=== PATIENT | male | born 1995 | race Two or more races ===

== ENCOUNTER → 2016-04-04 | Outpatient (CLI) | payer SELFPAY ==
[2016-01-11 10:51] VITALS: BP 137/76
[~2016-04-04] MED LIST: DOCU-27 PO; DOXY100T PO; HYDR-2666 PO; Hydrocodone/Acetaminophen PO; NO REPORTED MEDS; ONDA4TAB7 PO; Oxycodone Hcl/Acetaminophen PO; PRED20TA PO
[2016-04-04 14:12] LABS: ALBUMIN 3.8 g/dL (3.4-5.0); ALBUMIN/GLOBULIN RATIO 1.1 (1.0-1.7); CALCIUM 9.2 mg/dL (8.5-10.1); CREATININE 0.8 mg/dL (0.7-1.3); GFR 119.8; TOTAL BILIRUBIN 0.5 mg/dL (0.2-1.0); TOTAL PROTEIN 7.4 g/dL (6.4-8.2)
[2016-04-04 14:13] LABS: BASO % 1 % (0-3); EOS % 1 % (0-3); LYMPH # 2.5 x10^3/uL (1.0-4.8); LYMPH % 38 % (24-48); MEAN CORPUSCULAR HEMOGLOBIN 29 pg (25-35); MEAN CORPUSCULAR HGB CONC 33 g/dL (31-37); MEAN CORPUSCULAR VOLUME 88 fL (79-100); MONO % 6 % (0-9); NEUT % 55 % (31-73); PLATELET COUNT 256 x10^3/uL (140-400); RED BLOOD COUNT 5.13 x10^6/uL (4.30-5.70); RED CELL DISTRIBUTION WIDTH 13.3 % (11.5-14.5); WHITE BLOOD COUNT 6.6 x10^3/uL (4.0-11.0)
[2016-04-04 14:20] LABS: INR 1.1 (0.8-1.1); PROTHROMBIN TIME PATIENT 13.5 SEC (11.7-14.0)
== END | disposition home or self-care (01) ==
LOC: SURGPAT 13:19
PROVIDERS: ATTEND Neurological Surgery
DX: Z01.812 Encounter for preprocedural laboratory examination (principal)
CPT/HCPCS: 36415; 80053; 85027; 85610; 85730; 87641

== ENCOUNTER 2016-04-08 08:30 | Inpatient (IN) | payer SELFPAY ==
[~2016-04-08] VITALS: Ht 180.3 cm; Wt 133.8 kg
--- NOTE | 2016-04-15 01:58 | HP ---
ADMIT DATE: 04/22/2016 DICTATED BY: Pelon Benitez RN Date of surgery will be 04/22/2016. HISTORY OF PRESENT ILLNESS: This is a pleasant 21-year-old with an enlarging cystic fluid collection in his posterior fossa in the region where the previous extensive surgery has been done to remove his cerebellar tumor. He feels he has worsening in his condition. He is having more headaches. He notes some pain and blurred vision associated with his left eye. He says that he is noticing increased fullness in the back of his head on the left side. The cyst that I have been following is slowly enlarging over the last 8 months. There was compression of the fourth ventricle, currently located with it. To deal with the problem, would require surgery. I explained that I reviewed the films with another neurosurgeon and the most prudent and safe course would be to shunt the cyst. I outlined that the surgery with him in detail. 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 FAMILY HISTORY: Cancer and hypertension. SOCIAL HISTORY: Single. Nonsmoker. Does not drink alcohol. ALLERGIES: No known drug allergies. CURRENT MEDICATIONS: Ibuprofen and hydrocodone 7.5 one to two tablets as needed every 6 hours. REVIEW OF SYSTEMS: A 12-point review of systems was obtained and is noncontributory except for that mentioned above. PHYSICAL EXAMINATION: NEUROSURGERY EXAMINATION: GENERAL APPEARANCE: Alert, pleasant, in no acute distress. HEENT: Normocephalic, atraumatic. Eyes: Extraocular movement intact in his left eye, the left pupil is round, reactive to light and accommodation. He has no light perception on the right side. Ears: Hearing intact to finger rub. Oral cavity, tongue in midline. NECK AND THYROID: Full range of motion. SKIN: Warm and dry. EXTREMITIES: No clubbing, cyanosis, or edema. NEUROLOGIC: Alert and oriented x3, normal recent and remote memory, cranial nerves 2-12 intact. Strength 5/5 in bilateral upper and lower extremities, reflexes were present and symmetric in bilateral upper and lower extremities, sensory was intact to pin and light touch in the upper and lower extremities, normal gait. ASSESSMENT/PLAN: After the discussion with him and his mother, he would like to go ahead with surgery. We discussed the expected postoperative course and technique. He understands very well. He understands risks associated with the surgery, and its nature. He would like to proceed. We will make the arrangements. STORM HUSSEIN MD DR: ELVER/kaleb JOB#: [id number] / [id number] LARS
[2016-04-22] VITALS (8 sets, daily range): BP systolic 115–155; BP diastolic 64–88
[2016-04-22] MEDS ORDERED: BACITRACIN 50,000 UNIT in IV NORMAL SALINE 1000ML BAG 1,000 ML IRR ONE (06:00)
[2016-04-22] MEDS ORDERED: CEFAZOLIN 2GM PREMIX 50 ML IV PRN (06:00)
[2016-04-22] MEDS ORDERED: HYDROMORPHONE 2 MG/ML VIAL. IV PRN ×2 (07:00→14:00)
[2016-04-22] MEDS ORDERED: LIDOCAINE 1% 1 ML SYRINGE. ID PRN (07:00)
[2016-04-22] MEDS ORDERED: IV RINGERS,LACTATED 1000ML 1,000 ML IV SCH ×2 (07:00→10:00)
[2016-04-22] MEDS ORDERED: MORPHINE SULFATE 2 MG/ML DISP.SYRIN. IV PRN (07:00)
[2016-04-22] MEDS ORDERED: FENTANYL PF 100 MCG/2 ML VIAL. IV PRN ×3 (07:00→18:45)
[2016-04-22] MEDS ORDERED: ONDANSETRON PF 4 MG/2 ML VIAL. IV PRN ×2 (07:00→18:45)
[2016-04-22] MEDS ORDERED: PROCHLORPERAZINE 10 MG/2 ML VIAL. IV PRN ×2 (07:00→14:00)
[2016-04-22] MEDS ORDERED: ROCURONIUM 50 MG/5 ML VIAL. ONE ×2 (11:39→13:55)
[2016-04-22] MEDS ORDERED: REMIFENTANIL 2 MG VIAL. IV ONE (11:41)
[2016-04-22] MEDS ORDERED: PROPOFOL 50 ML IV ONE ×2 (11:43→15:10)
--- NOTE | 2016-04-22 12:09 | RAD ---
CT of the head without contrast, 04/22/2016: History: Shunt malfunction, brain lab study Noncontrast scans were obtained with the data sent to the operating room to aid in the patient's stereotactically guided surgery. The following findings are delineated on this limited exam: 1. A shunt tube remains in place entering the skull in the left frontoparietal region extending just to the right of midline in the region of the interventricular septum between the frontal horns of the lateral ventricles. The left lateral ventricle is enlarged compared to the collapsed right lateral ventricle, unchanged since 01/09/2016. 2. There is a persistent moderate sized cystic lesion in the left cerebellar hemisphere with mild effacement and displacement of the fourth ventricle to the right of midline. Again noted is an overlying craniotomy defect with a surgical plate and screws in place.
[2016-04-22] MEDS ORDERED: FENTANYL PF 250 MCG/5 ML VIAL. ONE (12:54)
[2016-04-22] MEDS ORDERED: DEXAMETHASONE SOD PHOS 20 MG/5 ML VIAL. ONE (13:07)
[2016-04-22] MEDS ORDERED: FAMOTIDINE 20 MG/2 ML VIAL ONE (13:07)
[2016-04-22] MEDS ORDERED: DESFLURANE > 120 MINUTES IH ONE (13:07)
[2016-04-22] MEDS ORDERED: LIDOCAINE 2% 100 MG/5 ML DISP.SYRIN. ONE (13:07)
[2016-04-22] MEDS ORDERED: MINERAL OIL/PETROLATUM,WHITE OPHTH OINT 3.5GM TUBE. ONE (13:07)
[2016-04-22] MEDS ORDERED: ONDANSETRON PF 4 MG/2 ML VIAL. ONE (13:07)
[2016-04-22] MEDS ORDERED: 0.9 % SODIUM CHLORIDE 50 ML VIAL. IJ ONE (13:52)
[2016-04-22] MEDS ORDERED: EPHEDRINE PF IN SALINE 50 MG/5 ML DISP.SYRIN. IV ONE (13:55)
[2016-04-22] MEDS ORDERED: PHENYLEPHRINE in 0.9% NACL PF 1 MG/10 ML DISP.SYRIN. IV ONE (13:55)
[2016-04-22] MEDS ORDERED: MEPERIDINE PF 25 MG/ML VIAL. IV PRN (14:00)
[2016-04-22] MEDS ORDERED: DIPHENHYDRAMINE 50 MG/ML VIAL IV PRN (14:00)
[2016-04-22] MEDS ORDERED: MORPHINE SULFATE 4 MG/ML DISP.SYRIN. IV PRN (14:00)
[2016-04-22] MEDS ORDERED: SURGICEL HEMOSTAT 4X8 EACH. ONE (14:21)
[2016-04-22] MEDS ORDERED: BUPIVAC MPF-EPI 0.5%-1:200000 30 ML VIAL. ONE (14:21)
[2016-04-22] MEDS ORDERED: THROMBIN 20,000 UNIT SPRAY.SYRN KIT TP ONE (14:21)
[2016-04-22] MEDS ORDERED: GELATIN SPONGE SIZE 100. ONE (14:21)
[2016-04-22] MEDS ORDERED: GLYCOPYRROLATE 1 MG/5 ML VIAL. ONE (15:35)
[2016-04-22] MEDS ORDERED: NEOSTIGMINE METHYLSULFATE 5 MG/5 ML SYRINGE. ONE (15:36)
[2016-04-22] MEDS: FENTANYL PF 100 MCG/2 ML VIAL. IV PRN ×5 (16:13→22:56)
[2016-04-22] MEDS: POTASSIUM CL 20MEQ D5-0.45NACL 1,000 ML IV SCH (19:55)
[2016-04-22] MEDS: CEFAZOLIN SODIUM 1 GM in IV NORMAL SALINE 50ML 50 ML IV SCH (22:57)
[2016-04-23] VITALS (14 sets, daily range): BP systolic 96–127; BP diastolic 54–82
[2016-04-23] MEDS: FENTANYL PF 100 MCG/2 ML VIAL. IV PRN ×2 (01:22→04:15)
[2016-04-23] MEDS: CEFAZOLIN SODIUM 1 GM in IV NORMAL SALINE 50ML 50 ML IV SCH ×2 (06:03→12:38)
[2016-04-23] MEDS: OXYCODONE/APAP 5/325 TABLET. PO PRN ×5 (08:59→21:31)
[2016-04-23] MEDS: POTASSIUM CL 20MEQ D5-0.45NACL 1,000 ML IV SCH (09:20)
--- NOTE | 2016-04-23 09:54 | PDOC ---
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 awake, alert, up in chair c/o incisional pain and headache c/o mild nausea Objective Objective Vital Signs Date Time Temp Pulse Resp B/P Pulse Ox O2 Delivery O2 Flow Rate FiO2 04/23/16 09:00 98 20 116/77 95 Room Air 04/23/16 08:00 97.7 97.7 04/22/16 20:24 5.0 Intake and Output 04/23/16 07:00 Intake Total 2784 ml Output Total 1545 ml Balance 1239 ml Intake Oral 0 ml IV Total 2784 ml Output Urine Total 1530 ml Estimated Blood Loss 15 ml Physical Exam General: Alert, Oriented X3, Cooperative, No acute distress Neuro: Normal speech, Other (MARES) Psych/Mental Status: Mental status NL Skin: Other (Dressing dry and intact) Assessment Assessment Problems Surgical Problems: (1) S/P ventricular shunt placement Status: Acute Plan Plan of Care transfer to floor encouraged PO as tolerated likely dc tomorrow Comment Review of Relevant I have reviewed the following items tracey (where applicable) has been applied. Labs Laboratory Tests Test 04/22/16 16:00 Nasal Screen MRSA (PCR) Negative (Negative) Laboratory Tests Test 04/22/16 16:00 Nasal Screen MRSA (PCR) Negative (Negative) Medications Current Medications Ondansetron HCl (Zofran) 4 mg PRN Q6HRS PRN IV Nausea; Start 04/22/16 at 07:00 ; Stop 04/22/16 at 18:54; Status DC Fentanyl Citrate (Fentanyl 2ml Vial) 25 mcg PRN Q5MIN PRN IV MILD PAIN; Start 04/22/16 at 07:00; Stop 04/22/16 at 18:38; Status DC Fentanyl Citrate (Fentanyl 2ml Vial) 50 mcg PRN Q5MIN PRN IV MODERATE PAIN Last administered on 04/22/16t 18:05; Start 04/22/16 at 07:00; Stop 04/22/16 at 18:38; Status DC Morphine Sulfate 1 mg 1 mg PRN Q10MIN PRN IV SEVERE PAIN; Start 04/22/16 at 07: 00; Stop 04/22/16 at 18:38; Status DC Lactated Ringer's (Iv Lactated Ringers) 1,000 ml @ 0 mls/hr Q0M IV ; Start at 07:00; Stop 04/22/16 at 18:38; Status DC Lidocaine HCl 2 ml 1X PRN PRN ID IV START; Start 04/22/16 at 07:00; Stop at 18:38; Status DC Hydromorphone HCl (Dilaudid) 0.5 mg PRN Q10MIN PRN IV SEVERE PAIN, Second choice; Start 04/22/16 at 07:00; Stop 04/22/16 at 18:38; Status DC Prochlorperazine Edisylate 5 mg 5 mg PACU PRN PRN IV NAUSEA; Start 04/22/16 at 07:00; Stop 04/22/16 at 18:38; Status DC Bacitracin 47129 unit/Sodium Chloride 1,000 ml @ 1,000 mls/hr 1X PERIOP ONCE IRR Last administered on 04/22/16 14:15; Start 04/22/16 at 06:00; Stop at 06:59; Status DC Cefazolin Sodium/ Dextrose 50 ml @ 100 mls/hr 1X PREOP PRN IV PRIOR TO PROCEDURE Last administered on 04/22/16 13:17; Start 04/22/16 at 06:00; Stop at 18:00; Status DC Lactated Ringer's (Iv Lactated Ringers) 1,000 ml @ 75 mls/hr [id number] IV Last administered on 04/22/16 17:19; Start 04/22/16 at 10:00; Stop 04/22/16 at 19:25 ; Status DC Rocuronium [place] (Zemuron) 50 mg STK-MED ONCE .ROUTE ; Start 04/22/16 at 11:39 ; Stop 04/22/16 at 11:40; Status DC Remifentanil HCl 2 mg 2 mg STK-MED ONCE IV ; Start 04/22/16 at 11:41; Stop 04/22 at 11:42; Status DC Propofol (Diprivan) 50 ml @ As Directed STK-MED ONCE IV ; Start 04/22/16 at 11: 43; Stop 04/22/16 at 11:44; Status DC Fentanyl Citrate (Fentanyl 5ml Vial) 250 mcg STK-MED ONCE .ROUTE ; Start at 12:54; Stop 04/22/16 at 12:55; Status DC Lidocaine HCl 100 mg STK-MED ONCE .ROUTE ; Start 04/22/16 at 13:07; Stop at 13:08; Status DC Dexamethasone Sodium Phosphate (Decadron) 20 mg STK-MED ONCE .ROUTE ; Start at 13:07; Stop 04/22/16 at 13:08; Status DC Ondansetron HCl (Zofran) 4 mg STK-MED ONCE .ROUTE ; Start 04/22/16 at 13:07; Stop 04/22/16 at 13:08; Status DC Famotidine (Pepcid) 20 mg STK-MED ONCE .ROUTE ; Start 04/22/16 at 13:07; Stop at 13:08; Status DC Multi-Ingred Cream/Lotion/Oil/ Oint (Artificial Tears Eye Oint) 7 sudhir STK-MED ONCE .ROUTE ; Start 04/22/16 at 13:07; Stop 04/22/16 at 13:08; Status DC Desflurane (Suprane) 90 ml STK-MED ONCE IH ; Start 04/22/16 at 13:07; Stop 04/22 at 13:08; Status DC Sodium Chloride (Sodium Chloride) 50 ml STK-MED ONCE IJ ; Start 04/22/16 at 13: 52; Stop 04/22/16 at 13:53; Status DC Ephedrine Sulfate 50 mg STK-MED ONCE IV ; Start 04/22/16 at 13:55; Stop at 13:56; Status DC Phenylephrine HCl 1 mg STK-MED ONCE IV ; Start 04/22/16 at 13:55; Stop 04/22/16 at 13:56; Status DC Rocuronium [place] (Zemuron) 50 mg STK-MED ONCE .ROUTE ; Start 04/22/16 at 13:55 ; Stop 04/22/16 at 13:56; Status DC Fentanyl Citrate (Fentanyl 2ml Vial) 50 mcg PRN Q5MIN PRN IV Acute Pain; Start 04/22/16 at 14:00; Stop 04/22/16 at 20:00; Status DC Morphine Sulfate 4 mg PRN Q10MIN PRN IV Moderate Pain; Start 04/22/16 at 14:00 ; Stop 04/22/16 at 20:00; Status DC Hydromorphone HCl (Dilaudid) 0.4 mg PRN Q10MIN PRN IV Moderate to severe pain; Start 04/22/16 at 14:00; Stop 04/22/16 at 20:00; Status DC Meperidine HCl (Demerol) 12.5 mg PRN Q5MIN PRN IV SHIVERING; Start 04/22/16 at 14:00; Stop 04/22/16 at 18:00; Status DC Prochlorperazine Edisylate (Compazine) 5 mg PRN Q6HRS PRN IV Nausea/Vomiting, 1st Choice; Start 04/22/16 at 14:00; Stop 04/22/16 at 20:00; Status DC Diphenhydramine HCl (Benadryl) 12.5 mg PRN Q2HR PRN IV ITCHING; Start 04/22/16 at 14:00; Stop 04/22/16 at 20:00; Status DC Thrombin 20,000 unit STK-MED ONCE TP Last administered on 04/22/16 14:15; Start 04/22/16 at 14:21; Stop 04/22/16 at 14:22; Status DC Gelatin (Gelfoam Size 100) 1 each STK-MED ONCE .ROUTE Last administered on 14:15; Start 04/22/16 at 14:21; Stop 04/22/16 at 14:22; Status DC Bupivacaine HCl/ Epinephrine Bitart (Sensorcain-Mpf Epi 0.5%-1:397061) 30 ml STK -MED ONCE .ROUTE Last administered on 04/22/16 14:15; Start 04/22/16 at 14:21 ; Stop 04/22/16 at 14:22; Status DC Cellulose 1 each 1 each STK-MED ONCE .ROUTE ; Start 04/22/16 at 14:21; Stop at 14:22; Status DC Propofol (Diprivan) 50 ml @ As Directed STK-MED ONCE IV ; Start 04/22/16 at 15: 10; Stop 04/22/16 at 15:11; Status DC Glycopyrrolate (Robinul) 1 mg STK-MED ONCE .ROUTE ; Start 04/22/16 at 15:35; Stop 04/22/16 at 15:36; Status DC Neostigmine Methylsulfate 5 mg STK-MED ONCE .ROUTE ; Start 04/22/16 at 15:36; Stop 04/22/16 at 15:37; Status DC Fentanyl Citrate (Fentanyl 2ml Vial) 50 mcg PRN Q1HR PRN IV PAIN Last administered on 04/23/16 04:15; Start 04/22/16 at 18:45 Fentanyl Citrate (Fentanyl 2ml Vial) 25 mcg PRN Q1HR PRN IV PAIN; Start at 18:45 Oxycodone/ Acetaminophen (Percocet 5/325) 1 tab PRN Q4HRS PRN PO PAIN Last administered on 04/23/16 08:59; Start 04/22/16 at 18:45 Oxycodone/ Acetaminophen 2 tab 2 tab PRN Q4HRS PRN PO PAIN; Start 04/22/16 at 18:45 Cefazolin Sodium/ Sodium Chloride (Ancef/Iv Sodium Chloride 0.9% 50ml) 50 ml @ 100 mls/hr Q8H IV Last administered on 04/23/16 06:03; Start 04/22/16 at 22:00 ; Stop 04/23/16 at 14:29 Ondansetron HCl 4 mg 4 mg PRN Q8HRS PRN IV NAUSEA/VOMITING; Start 04/22/16 at 18:45 Potassium Chloride/Dextrose/ Sod Cl (KCl 20 Meq In D5W-1/2 NS) 1,000 ml @ 75 mls/hr [id number] IV Last administered on 04/22/16 19:55; Start 04/22/16 at 20:00 Active Scripts Active Reported Hydrocodone-Apap 5-325 (Hydrocodone Bit/Acetaminophen) 1 Each Tablet 1 Tab PO PRN Q6HRS PRN Vitals/I & O Vital Sign - Last 24 Hours 04/22/16 04/22/16 04/22/16 04/22/16 15:46 16:00 16:00 16:13 Temp 96.5 96.5 Pulse 90 96 Resp 20 20 20 B/P 144/86 156/88 Pulse Ox 100 100 99 O2 Delivery Simple Mask Mask Simple Mask Simple Mask O2 Flow Rate 10 4.0 10 10.0 04/22/16 04/22/16 04/22/16 04/22/16 16:15 16:22 16:25 16:30 Temp 96.5 98.1 96.5 98.1 Pulse 96 95 69 Resp 20 20 20 20 B/P 143/80 155/88 143/79 Pulse Ox 100 100 99 100 O2 Delivery Simple Mask Simple Mask Simple Mask Simple Mask O2 Flow Rate 10 10.0 10.0 10 04/22/16 04/22/16 04/22/16 04/22/16 16:40 16:45 17:00 17:04 Temp 98.1 98.1 Pulse 72 62 Resp 20 14 B/P 136/77 116/72 Pulse Ox 100 100 O2 Delivery Simple Mask Mask Simple Mask O2 Flow Rate 5.0 5.0 5.0 5.0 04/22/16 04/22/16 04/22/16 04/22/16 18:00 18:05 18:06 18:31 Pulse 100 Resp 16 16 16 B/P 133/69 Pulse Ox 94 94 94 O2 Delivery Room Air Room Air Room Air Room Air 04/22/16 04/22/16 04/22/16 04/22/16 19:54 20:00 20:00 20:24 Temp 97.6 97.6 Pulse 110 Resp 12 18 B/P 131/74 Pulse Ox 97 97 O2 Delivery Room Air Room Air Room Air O2 Flow Rate 5.0 04/22/16 04/22/16 04/22/16 04/22/16 21:15 22:00 23:00 23:26 Pulse 93 109 104 Resp 16 20 18 B/P 115/67 121/67 115/64 Pulse Ox 94 92 95 98 O2 Delivery Room Air Room Air Room Air Room Air 04/23/16 04/23/16 04/23/16 04/23/16 00:00 00:00 01:00 02:00 Temp 97.3 97.3 Pulse 98 100 96 Resp 16 18 16 B/P 118/61 108/64 101/56 Pulse Ox 94 88 94 O2 Delivery Room Air Room Air Room Air Room Air 04/23/16 04/23/16 04/23/16 04/23/16 03:00 04:00 04:00 05:00 Temp 97.7 97.7 Pulse 80 87 113 Resp 14 16 14 B/P 96/54 127/67 100/63 Pulse Ox 96 89 97 O2 Delivery Room Air Room Air Room Air Room Air 04/23/16 04/23/16 04/23/16 04/23/16 06:00 07:00 08:00 08:00 Temp 97.7 97.7 Pulse 75 65 67 Resp 12 20 20 B/P 108/61 108/64 110/57 Pulse Ox 94 96 92 O2 Delivery Room Air Room Air Room Air Room Air 04/23/16 04/23/16 08:59 09:00 Pulse 98 Resp 16 20 B/P 116/77 Pulse Ox 94 95 O2 Delivery Room Air Room Air Intake and Output 04/22/16 04/22/16 04/23/16 15:00 23:00 07:00 Intake Total 50 ml 1878 ml 856 ml Output Total 915 ml 630 ml Balance 50 ml 963 ml 226 ml STORM HUSSEIN MD Apr 23, 2016 09:54
[2016-04-24] MEDS: OXYCODONE/APAP 5/325 TABLET. PO PRN ×3 (01:45→12:43)
[2016-04-24 03:07] VITALS: BP 113/62
[2016-04-24 07:00] VITALS: BP 106/48
--- NOTE | 2016-04-24 09:34 | DISCH ---
DISCHARGE INSTRUCTIONS Condition on Discharge Condition on Discharge: Stable Activity After Discharge Activity Instructions for Disc: Activity as tolerated, Avoid exertion Bathing Instructions: Shower-keep dressing dry Lifting Instructions after Dis: No heavy lifting, No pulling or pushing, Do not lift >10 pounds Driving Instructions after Dis: No driving for 2 weeks Diet after Discharge Additional Diet Restrictions: resume home diet Wound Incision Care Wound/Incision Care: Ice to area for comfort Other wound/incision instructi: may shower- no soaking Contacting the after DC Call your doctor for: Concerns you may have Follow-Up Follow up with: Dr. Mckoy in 2 weeks [phone] KAEL PRIEST APRN Apr 24, 2016 09:34
[2016-04-24] MEDS ORDERED: OXYC1TAB7 PO (09:41)
[2016-04-24] MEDS ORDERED: ONDA4TAB7 PO (09:41)
--- NOTE | 2016-04-24 09:44 | PDOC ---
PROGRESS NOTES Subjective Subjective awake, resting in bed pain improved incisions sore Objective Objective Vital Signs Date Time Temp Pulse Resp B/P Pulse Ox O2 Delivery O2 Flow Rate FiO2 04/24/16 08:24 Room Air 04/24/16 07:00 97.5 16 16 106/48 96 97.5 04/22/16 20:24 5.0 Intake and Output 04/24/16 06:59 Intake Total 770 ml Output Total 250 ml Balance 520 ml Intake Oral 420 ml IV Total 350 ml Output Urine Total 250 ml # Voids 1 Physical Exam General: Alert, Oriented X3, Cooperative, No acute distress Neuro: Normal speech Skin: Other (dressings removed, mari intact, dry) Assessment Assessment Problems Medical Problems: (1) Hydrocephalus Status: Acute Surgical Problems: (1) S/P ventricular shunt placement Status: Acute Plan Plan of Care may dc home f/u 2 weeks Comment Review of Relevant I have reviewed the following items tracey (where applicable) has been applied. Labs Laboratory Tests Test 04/22/16 16:00 Nasal Screen MRSA (PCR) Negative (Negative) Medications Current Medications Ondansetron HCl (Zofran) 4 mg PRN Q6HRS PRN IV Nausea; Start 04/22/16 at 07:00 ; Stop 04/22/16 at 18:54; Status DC Fentanyl Citrate (Fentanyl 2ml Vial) 25 mcg PRN Q5MIN PRN IV MILD PAIN; Start 04/22/16 at 07:00; Stop 04/22/16 at 18:38; Status DC Fentanyl Citrate (Fentanyl 2ml Vial) 50 mcg PRN Q5MIN PRN IV MODERATE PAIN Last administered on 04/22/16t 18:05; Start 04/22/16 at 07:00; Stop 04/22/16 at 18:38; Status DC Morphine Sulfate 1 mg 1 mg PRN Q10MIN PRN IV SEVERE PAIN; Start 04/22/16 at 07: 00; Stop 04/22/16 at 18:38; Status DC Lactated Ringer's (Iv Lactated Ringers) 1,000 ml @ 0 mls/hr Q0M IV ; Start at 07:00; Stop 04/22/16 at 18:38; Status DC Lidocaine HCl 2 ml 1X PRN PRN ID IV START; Start 04/22/16 at 07:00; Stop at 18:38; Status DC Hydromorphone HCl (Dilaudid) 0.5 mg PRN Q10MIN PRN IV SEVERE PAIN, Second choice; Start 04/22/16 at 07:00; Stop 04/22/16 at 18:38; Status DC Prochlorperazine Edisylate 5 mg 5 mg PACU PRN PRN IV NAUSEA; Start 04/22/16 at 07:00; Stop 04/22/16 at 18:38; Status DC Bacitracin 10520 unit/Sodium Chloride 1,000 ml @ 1,000 mls/hr 1X PERIOP ONCE IRR Last administered on 04/22/16 14:15; Start 04/22/16 at 06:00; Stop at 06:59; Status DC Cefazolin Sodium/ Dextrose 50 ml @ 100 mls/hr 1X PREOP PRN IV PRIOR TO PROCEDURE Last administered on 04/22/16 13:17; Start 04/22/16 at 06:00; Stop at 18:00; Status DC Lactated Ringer's (Iv Lactated Ringers) 1,000 ml @ 75 mls/hr [id number] IV Last administered on 04/22/16 17:19; Start 04/22/16 at 10:00; Stop 04/22/16 at 19:25 ; Status DC Rocuronium [place] (Zemuron) 50 mg STK-MED ONCE .ROUTE ; Start 04/22/16 at 11:39 ; Stop 04/22/16 at 11:40; Status DC Remifentanil HCl 2 mg 2 mg STK-MED ONCE IV ; Start 04/22/16 at 11:41; Stop 04/22 at 11:42; Status DC Propofol (Diprivan) 50 ml @ As Directed STK-MED ONCE IV ; Start 04/22/16 at 11: 43; Stop 04/22/16 at 11:44; Status DC Fentanyl Citrate (Fentanyl 5ml Vial) 250 mcg STK-MED ONCE .ROUTE ; Start at 12:54; Stop 04/22/16 at 12:55; Status DC Lidocaine HCl 100 mg STK-MED ONCE .ROUTE ; Start 04/22/16 at 13:07; Stop at 13:08; Status DC Dexamethasone Sodium Phosphate (Decadron) 20 mg STK-MED ONCE .ROUTE ; Start at 13:07; Stop 04/22/16 at 13:08; Status DC Ondansetron HCl (Zofran) 4 mg STK-MED ONCE .ROUTE ; Start 04/22/16 at 13:07; Stop 04/22/16 at 13:08; Status DC Famotidine (Pepcid) 20 mg STK-MED ONCE .ROUTE ; Start 04/22/16 at 13:07; Stop at 13:08; Status DC Multi-Ingred Cream/Lotion/Oil/ Oint (Artificial Tears Eye Oint) 7 sudhir STK-MED ONCE .ROUTE ; Start 04/22/16 at 13:07; Stop 04/22/16 at 13:08; Status DC Desflurane (Suprane) 90 ml STK-MED ONCE IH ; Start 04/22/16 at 13:07; Stop 04/22 at 13:08; Status DC Sodium Chloride (Sodium Chloride) 50 ml STK-MED ONCE IJ ; Start 04/22/16 at 13: 52; Stop 04/22/16 at 13:53; Status DC Ephedrine Sulfate 50 mg STK-MED ONCE IV ; Start 04/22/16 at 13:55; Stop at 13:56; Status DC Phenylephrine HCl 1 mg STK-MED ONCE IV ; Start 04/22/16 at 13:55; Stop 04/22/16 at 13:56; Status DC Rocuronium [place] (Zemuron) 50 mg STK-MED ONCE .ROUTE ; Start 04/22/16 at 13:55 ; Stop 04/22/16 at 13:56; Status DC Fentanyl Citrate (Fentanyl 2ml Vial) 50 mcg PRN Q5MIN PRN IV Acute Pain; Start 04/22/16 at 14:00; Stop 04/22/16 at 20:00; Status DC Morphine Sulfate 4 mg PRN Q10MIN PRN IV Moderate Pain; Start 04/22/16 at 14:00 ; Stop 04/22/16 at 20:00; Status DC Hydromorphone HCl (Dilaudid) 0.4 mg PRN Q10MIN PRN IV Moderate to severe pain; Start 04/22/16 at 14:00; Stop 04/22/16 at 20:00; Status DC Meperidine HCl (Demerol) 12.5 mg PRN Q5MIN PRN IV SHIVERING; Start 04/22/16 at 14:00; Stop 04/22/16 at 18:00; Status DC Prochlorperazine Edisylate (Compazine) 5 mg PRN Q6HRS PRN IV Nausea/Vomiting, 1st Choice; Start 04/22/16 at 14:00; Stop 04/22/16 at 20:00; Status DC Diphenhydramine HCl (Benadryl) 12.5 mg PRN Q2HR PRN IV ITCHING; Start 04/22/16 at 14:00; Stop 04/22/16 at 20:00; Status DC Thrombin 20,000 unit STK-MED ONCE TP Last administered on 04/22/16 14:15; Start 04/22/16 at 14:21; Stop 04/22/16 at 14:22; Status DC Gelatin (Gelfoam Size 100) 1 each STK-MED ONCE .ROUTE Last administered on 14:15; Start 04/22/16 at 14:21; Stop 04/22/16 at 14:22; Status DC Bupivacaine HCl/ Epinephrine Bitart (Sensorcain-Mpf Epi 0.5%-1:390660) 30 ml STK -MED ONCE .ROUTE Last administered on 04/22/16 14:15; Start 04/22/16 at 14:21 ; Stop 04/22/16 at 14:22; Status DC Cellulose 1 each 1 each STK-MED ONCE .ROUTE ; Start 04/22/16 at 14:21; Stop at 14:22; Status DC Propofol (Diprivan) 50 ml @ As Directed STK-MED ONCE IV ; Start 04/22/16 at 15: 10; Stop 04/22/16 at 15:11; Status DC Glycopyrrolate (Robinul) 1 mg STK-MED ONCE .ROUTE ; Start 04/22/16 at 15:35; Stop 04/22/16 at 15:36; Status DC Neostigmine Methylsulfate 5 mg STK-MED ONCE .ROUTE ; Start 04/22/16 at 15:36; Stop 04/22/16 at 15:37; Status DC Fentanyl Citrate (Fentanyl 2ml Vial) 50 mcg PRN Q1HR PRN IV PAIN Last administered on 04/23/16 04:15; Start 04/22/16 at 18:45 Fentanyl Citrate (Fentanyl 2ml Vial) 25 mcg PRN Q1HR PRN IV PAIN; Start at 18:45 Oxycodone/ Acetaminophen (Percocet 5/325) 1 tab PRN Q4HRS PRN PO PAIN Last administered on 04/23/16 09:43; Start 04/22/16 at 18:45 Oxycodone/ Acetaminophen 2 tab 2 tab PRN Q4HRS PRN PO PAIN Last administered on 04/24/16 08:24; Start 04/22/16 at 18:45 Cefazolin Sodium/ Sodium Chloride (Ancef/Iv Sodium Chloride 0.9% 50ml) 50 ml @ 100 mls/hr Q8H IV Last administered on 04/23/16 12:38; Start 04/22/16 at 22:00 ; Stop 04/23/16 at 14:29; Status DC Ondansetron HCl 4 mg 4 mg PRN Q8HRS PRN IV NAUSEA/VOMITING; Start 04/22/16 at 18:45 Potassium Chloride/Dextrose/ Sod Cl (KCl 20 Meq In D5W-1/2 NS) 1,000 ml @ 75 mls/hr [id number] IV Last administered on 04/22/16 19:55; Start 04/22/16 at 20:00 ; Stop 04/23/16 at 09:51; Status DC Active Scripts Active Reported Hydrocodone-Apap 5-325 (Hydrocodone Bit/Acetaminophen) 1 Each Tablet 1 Tab PO PRN Q6HRS PRN Vitals/I & O Vital Sign - Last 24 Hours 04/23/16 04/23/16 04/23/16 04/23/16 10:45 10:56 13:12 15:00 Temp 97.8 97.9 97.8 97.9 Pulse 71 70 Resp 16 16 16 16 B/P 124/82 120/80 Pulse Ox 96 96 96 96 O2 Delivery Room Air Room Air Room Air Room Air 04/23/16 04/23/16 04/23/16 04/23/16 17:26 19:00 20:00 21:31 Temp 98.4 98.4 Pulse 83 Resp 18 20 B/P 114/67 Pulse Ox 95 95 O2 Delivery Room Air Room Air Room Air Room Air 04/23/16 04/23/16 04/24/16 04/24/16 22:31 23:00 01:45 02:45 Temp 97.8 97.8 Pulse 95 Resp 18 20 20 B/P 121/58 Pulse Ox 95 95 O2 Delivery Room Air Room Air Room Air 04/24/16 04/24/16 04/24/16 04/24/16 03:07 07:00 08:15 08:24 Temp 97.9 97.5 97.9 97.5 Pulse 74 16 Resp 18 16 B/P 113/62 106/48 Pulse Ox 95 96 O2 Delivery Room Air Room Air Room Air Room Air Intake and Output 04/23/16 04/23/16 04/24/16 14:59 22:59 06:59 Intake Total 770 ml Output Total 250 ml Balance 520 ml KAEL PRIEST APRN Apr 24, 2016 09:44
[2016-04-24 11:12] VITALS: BP 111/57
--- NOTE | 2016-05-01 00:26 | OP ---
DATE OF SURGERY: 04/22/2016 PREOPERATIVE DIAGNOSIS: Left suboccipital enlarging cystic mass. POSTOPERATIVE DIAGNOSIS: Left suboccipital enlarging cystic mass. OPERATION PERFORMED: Left suboccipital cyst, peritoneal shunt. The operation was done with BrainLAB guidance. SURGEON: Shmuel Hussein M.D. COMPUTER SUPPORT TECHNICIAN: Chucho Martins MD, assisted with the surgery, assisted with the exposure, the shunting procedure as well as the closure. 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 Postoperatively he did well with the residual ex vacuo of cyst, which is now slowly enlarging. He did have problems with a suboccipital, subcutaneous fluid collection and underwent procedures to seal the connection between the suboccipital fluid collection and the suboccipital cyst. He eventually underwent a ventriculoperitoneal shunting procedure and has done very well with that. On sequential imaging studies, however, the left cerebellar cyst, which occupied the region of the large resection cavity has been slowly enlarging and it was felt the most prudent course would be to the shunt this cyst and connect the shunting the peritoneal tubing in place. I discussed this with the patient and his family who wished to go ahead. DESCRIPTION OF PROCEDURE: Following general endotracheal anesthesia, the patient was positioned in the right lateral decubitus position in Michel pins. His left suboccipital region was then clipped, prepped and draped in the standard fashion. SMOOTH hose and AV impulse boots were applied for DVT prophylaxis. The microscope was draped. The patient had undergone a previous BrainLAB scan. The BrainLAB system was initialized. He was prepped and draped in the standard fashion. Ancef 2 grams was given less than 1 hour prior to the initiation of the surgery. An incision was made opening his previous left suboccipital incision. Dissection was carried down to skin and subcutaneous tissue and self-retaining retractors were placed. The large craniectomy defect had been covered with a mesh and on the lateral side of the mesh using the BrainLAB system, we visualized an entry site to allow us to pass the catheter between the mesh and the bone to pass adjacent to the cystic abnormality. Using the high-speed air drill, the suboccipital bone was thinned and this allowed access to a ventricular catheter, which was then passed into the posterior aspect of the cystic abnormality. This was attached to Rickham and a valve assembly with the valve pressure set at 10 cm of water. Distally in the lateral neck, a small incision was made and dissection was carried down to the previously placed shunt tubing and a Y connector was then attached and secured with 2-0 silk ties. The valve outflow of the peritoneal tubing was then attached to the Y connector. The wounds were copiously irrigated and were closed with absorbable suture. The skin was closed with skin mari. The patient was awakened uneventfully. The operation went very well. I was quite pleased with the surgery. SHMUEL HUSSEIN MD DR: ELVER/kaleb JOB#: [id number] / [id number] LARS
== END 2016-04-24 13:59 | disposition home or self-care (01) | DRG 32 ==
LOC: OPSVCIP 04-22 08:56 → 1 WEST ICU 04-22 14:00 → 4 NORTH 04-23 16:55
PROVIDERS: ADMIT Neurological Surgery; ATTEND Neurological Surgery
PROC: 00W60JZ Revision of Synthetic Substitute in Cerebral Ventricle, Open Approach (ICD-10-PCS; principal; 2016-04-22 11:30)
DX: G93.0 Cerebral cysts (principal); Z68.41 Body mass index [BMI] 40.0-44.9, adult; Z98.2 Presence of cerebrospinal fluid drainage device; Z82.49 Family history of ischemic heart disease and other diseases of the circulatory system; Z85.841 Personal history of malignant neoplasm of brain; E66.01 Morbid (severe) obesity due to excess calories
CPT/HCPCS: 70450; 87641; C1894; J0690; J1100; J2370; J2405; J2704; J2710; J3010; J3490; J7030; J7120; S0028

== ENCOUNTER → 2016-10-08 | Outpatient (CLI) | payer SELFPAY ==
[~2016-10-08] MED LIST changes: +DOCU-109 PO; -DOCU-27 PO; +GADOBUTROL 10 MMOL/10 ML VIAL IV ONE; -HYDR-2666 PO; +HYDR-2758 PO; +OXYC1TAB7 PO
--- NOTE | 2016-10-08 09:41 | RAD ---
INDICATION: Increased headaches. Shunt revision in April. Cerebellar tumor TECHNIQUE: Sagittal T1, axial T1, axial T2, axial FLAIR, axial T2 gradient, diffusion imaging with ADC map, postcontrast axial, and postcontrast coronal sequences are provided. 10 mL of intravenous Gadavist was administered without complication. Comparison is from February 27, 2016. FINDINGS: Postoperative fluid collection in the posterior fossa on the left is decreased in size from the February 26 study, 5.2 cm AP by 3.9 cm transverse compared to 5.7 x 4.7 cm on prior. There is less mass effect on the fourth ventricle. There is less shift of the brainstem to the right. There is again blooming artifact along the medial and superior aspect of the presumed operative cavity. There is some patchy enhancement along the superior medial aspect of the cystic collection. This is stable. Overlying craniotomy defect again is noted. Left frontal approach ventriculostomy catheter appears similarly positioned to prior study. Asymmetry in size of the lateral ventricles with the left larger than the right is unchanged from prior study. There is also an old shunt tract noted in the right frontal white matter. There is no midline shift. There is no restricted diffusion to suggest an acute infarct. Intracranial flow voids are preserved. Cervicomedullary junction is unremarkable. Pituitary and suprasellar region are unremarkable. There is pansinus mucosal thickening. Mastoid air cells are clear. IMPRESSION: 1. Decrease in size of the posterior fossa fluid collection on the left. Patchy enhancement along the superior medial aspect of the fluid collection is similar to prior. 2. Similarly positioned left frontal approach shunt catheter with similar size of the lateral ventricles. The left remains larger than the right, although neither is dilated. Electronically signed by: Juanjo Velarde MD (10/08/2016 9:37 AM) [id number]
--- NOTE | 2016-10-08 13:29 | RAD ---
Chest radiograph 2 view 10/08/2016 Clinical indication: Hydrocephalus shunt series. Comparison: January 08, 2016. Findings: There is hypoinflation of both lungs. Cardiac and mediastinal silhouettes are within normal limits. No pleural effusion, pneumothorax or focal consolidation. Small caliber catheter overlying the left hemithorax with no discontinuity or focal kinking. Impression: No focal kink or disruption of the visualized portions of the left BANDER AND CELLOPH[employer]ER MACHINE HELPER shunt catheter.
--- NOTE | 2016-10-08 13:30 | RAD ---
Abdominal radiograph AP view Clinical indication: Shunt series. Comparison: 01/10/2016. Findings: Small caliber catheter overlying the left hemiabdomen and central pelvis with no discontinuity or focal kinking. No radiographic evidence of bowel obstruction. Impression: No focal kink or disruption of the patient catheter in the visualized portions.
--- NOTE | 2016-10-08 13:32 | RAD ---
2 view skull 10/08/2016 Clinical indication: Hydrocephalus. Comparison: 02/27/2016 Findings: Small caliber DIRECTOR TALENT MANAGEMENT shunt catheter with no focal kinking or disruption the visualized portions. Impression: No focal kinking or disruption in the visualized DIRECTOR [employer]ALENT MANAGEMENT shunt catheter tubing.
== END | disposition home or self-care (01) ==
LOC: MRI 07:54
PROVIDERS: ATTEND Neurological Surgery
DX: C71.6 Malignant neoplasm of cerebellum (principal); G91.9 Hydrocephalus, unspecified
CPT/HCPCS: 70250; 70553; 71020; 74000; A9585

== ENCOUNTER 2016-12-07 02:13 | Inpatient (IN) | payer SELFPAY ==
[~2016-12-07] VITALS: Ht 180.3 cm; Wt 113.4 kg
[~2016-12-07 02:13] MED LIST changes: -GADOBUTROL 10 MMOL/10 ML VIAL IV ONE
--- NOTE | 2016-12-07 02:55 | PHYS DOC ---
Past Medical History Past Medical History: Other Additional Past Medical Histor: BRAIN TUMOR,blind R eye,CHRONIC HEAD PAIN, Past Surgical History: Other Additional Past Surgical Histo: BRAIN TUMOR REMOVAL, shunt placed,SPINAL FLUID REMOVED FROM HEAD Alcohol Use: None Drug Use: None Adult General Chief Complaint Chief Complaint: MECHANICAL FALL HPI HPI Patient is a 21 year old M who presents with left leg pain. Patient states he is walking in the grass slipped and fell get his leg caught under a fence. Patient states he fell back in his head with no loss of consciousness. Patient complains of pain to his mid thigh. Patient denies any other injuries. Patient rates his pain 10 out of 10. Patient denies any chest pain returns of breath. Patient denies any lightheaded dizziness at this time. Patient denies any fevers. Review of Systems Review of Systems GEN: Denies fevers, chills, sweats HEENT: Denies blurred vision, sore throat CV: Denies chest pain RESP: Denies shortness of air, cough GI: Denies n/v/d NEURO: Denies confusion, dizziness MSK: Left leg pain Current Medications Current Medications Current Medications Medications (Trade) Dose Ordered Sig/Yvon Start Time Stop Time Status Last Admin Dose Admin Hydromorphone HCl (Dilaudid) 1 mg 1X ONCE 12/07/16 06:00 12/07/16 06:01 DC 12/07/16 06:07 1 MG Allergies Allergies Allergies Coded Allergies Type Severity Reaction Last Updated Verified No Known Drug Allergies 01/09/16 No Physical Exam Physical Exam GEN.: No apparent distress. Alert and oriented. HEENT: Head is normocephalic, atraumatic NECK: Supple. LUNGS: CTAB. HEART: RRR, S1, S2 present. Peripheral pulses intact ABDOMEN: Soft, nontender. Positive bowel sounds. EXTREMITIES: Without any cyanosis, tenderness palpation to the mid femur on the left, minimal swelling, no obvious deformity, positive dorsal pedis pulse bilaterally, no tenderness palpation to the left hip NEUROLOGIC: Normal speech, normal tone PSYCHIATRIC: Normal affect, normal mood. SKIN: No ulcerations Current Patient Data Vital Signs Vital Signs Date Time Temp Pulse Resp B/P (MAP) Pulse Ox O2 Delivery O2 Flow Rate FiO2 12/07/16 06:07 16 98 Room Air 12/07/16 03:42 75 141/61 (87) 12/07/16 02:33 97.6 97.6 EKG EKG [] Radiology/Procedures Radiology/Procedures [] Course & Med Decision Making Course & Med Decision Making Pertinent Labs and Imaging studies reviewed. (See chart for details) ED course: Patient was seen and examined emergency room CT scan of the head and C-spine along with pelvis/left hip, left femur ordered 0515: Patient is unable to ambulate secondary to severe pain to his left leg therefore CT scan of the pelvis and left lower extremity will be ordered 0600: Patient care has been transitioned to Dr. Medel who will follow-up on CT results and reevaluated the patient for disposition [] Dragon Disclaimer Dragon Disclaimer This electronic medical record was generated, in whole or in part, using a voice recognition dictation system. Departure Departure Referrals: RILEY MOLINA MD (PCP) PATI SANCHEZ DO Dec 07, 2016 02:55
[2016-12-07] MEDS ORDERED: HYDROmorphone 2 MG/ML VIAL IM ONE (03:30)
--- NOTE | 2016-12-07 04:50 | RAD ---
INDICATION: PAIN POST FALL TONIGHT
HX SHUNT, BRAIN TUMOR COMPARISON: April 22, [address] TECHNIQUE: Axial CT images obtained through the head and cervical spine without intravenous contrast. Coronal and sagittal reformats processed of cervical spine. One or more of the following individualized dose reduction techniques were utilized for this examination: 1. Automated exposure control; 2. Adjustment of the mA and/or kV according to patient size; 3. Use of iterative reconstruction technique. FINDINGS: Head: No intracranial hemorrhage. No midline shift. Basal cisterns patents. Ventricles and sulci are within normal limits. No acute osseous abnormality. Orbits and paranasal sinuses unremarkable. Repeat demonstration of a left-sided shunt from a frontal approach with tip again at right lateral ventricle. Repeat demonstration of postoperative changes left suboccipital region with low-attenuation in the left cerebellum postoperatively. Cervical: No definite acute fracture. No significant malalignment. No evidence of perivertebral hematoma. Fusion of C2-3 vertebral body and facet joints. IMPRESSION: No acute intracranial hemorrhage. Repeat demonstration of ventricular shunt as well as postoperative changes to the posterior fossa. No definite acute fracture or dislocation of the cervical spine. Electronically signed by: Aric Russell MD (12/07/2016 4:46 AM) [facility]
[2016-12-07] MEDS ORDERED: HYDROmorphone 2 MG/ML VIAL IV ONE (06:00)
--- NOTE | 2016-12-07 06:58 | RAD ---
INDICATION: left hip,leg pain tonight post fall, pt unable to bear weight on leg COMPARISON: None. TECHNIQUE: Axial CT images obtained through the pelvis and left femur. One or more of the following individualized dose reduction techniques were utilized for this examination: 1. Automated exposure control; 2. Adjustment of the mA and/or kV according to patient size; 3. Use of iterative reconstruction technique. FINDINGS: Pelvis: There is some regions of curvilinear sclerosis in the bilateral femoral heads. No evidence of dislocation at the bilateral hip joints. No definite acute fracture within the pelvis. Partial visualization of a shunt or drain at left lower quadrant of abdomen. Small fat-containing umbilical hernia. Left femur: Subtle step-off at the femoral neck. No definite hematoma adjacent to left femur. IMPRESSION: No definite acute fracture is seen within the pelvis. There is a subtle/questionable step-off at the femoral neck. This is a very subtle finding and could be secondary to a vascular channel but nondisplaced fracture is not excluded if there is high clinical concern. MRI could better evaluate if further information is desired. Within the bilateral femoral heads there is regions of curvilinear sclerosis identified. Would correlate for possible causes such as avascular necrosis of the femoral heads. There is also a 22 mm apparent partially sclerotic lesion in the marrow of the distal femur. Could be seen with causes such as bone infarct or enchondroma but other higher grade etiologies are not excluded on this exam. If further clarification is desired MRI can better evaluate. Electronically signed by: Aric Russell MD (12/07/2016 6:54 AM) [facility]
[2016-12-07] MEDS ORDERED: fentaNYL PF VIAL 100 MCG/2 ML VIAL IV ONE (07:30)
[2016-12-07] MEDS ORDERED: ONDANSETRON PF 4 MG/2 ML VIAL. IV PRN (07:30)
[2016-12-07] MEDS: IV NORMAL SALINE 1000ML BAG 1,000 ML IV SCH ×2 (07:53→15:12)
--- NOTE | 2016-12-07 08:01 | RAD ---
Left femur AP and lateral views. History: Fall with pain AP and lateral views were taken of the left femur. There is sclerosis of the femoral head which suggests ischemic necrosis. MRI could be of benefit. There is no acute fracture. There are slight calcifications in the distal femur which suggests a chondroid lesion such as an in chondroma again MRI could be of benefit. Impression: 1. Ischemic necrosis of the femoral head. 2. Probable small chondroid lesion of the distal femur. MRI imaging would be of benefit.
--- NOTE | 2016-12-07 08:03 | RAD ---
Pelvis one to view History: Pain after a fall Single view was taken of the pelvis. Pelvis is intact without acute fracture. There is sclerosis of the femoral head on the left suggesting aseptic necrosis. There is minimal changes on the right at the femoral head (possible aseptic pneumatosis MRI would be of benefit. Impression: 1. Aseptic necrosis of the femoral head more on the left than on the right. 2. No pelvic fracture.
[2016-12-07 08:58] VITALS: BP 119/67
[2016-12-07] MEDS: fentaNYL PF VIAL 100 MCG/2 ML VIAL IV PRN ×7 (09:02→23:06)
[2016-12-07] MEDS ORDERED: OXYC-323 PO (09:45)
[2016-12-07 09:54] LABS: CALCIUM 9.1 mg/dL (8.5-10.1); GFR 92.6; POTASSIUM 4.2 mmol/L (3.5-5.1)
[2016-12-07 10:43] LABS: BASO % 1 % (0-3); EOS % 1 % (0-3); HEMOGLOBIN 14.5 g/dL (13.0-17.5); LYMPH # 2.8 x10^3/uL (1.0-4.8); LYMPH % 35 % (24-48); MEAN CORPUSCULAR HEMOGLOBIN 30 pg (25-35); MEAN CORPUSCULAR HGB CONC 34 g/dL (31-37); MEAN CORPUSCULAR VOLUME 88 fL (79-100); MONO % 6 % (0-9); NEUT % 58 % (31-73); PLATELET COUNT 229 x10^3/uL (140-400); RED BLOOD COUNT 4.88 x10^6/uL (4.30-5.70); RED CELL DISTRIBUTION WIDTH 13.7 % (11.5-14.5); WHITE BLOOD COUNT 8.1 x10^3/uL (4.0-11.0)
[2016-12-07 11:00] VITALS: BP 114/64
[2016-12-07] MEDS ORDERED: PNEUMOCOCCAL VAX SCREEN BY RX. MC PRN (11:00)
[2016-12-07] MEDS ORDERED: INFLUENZA VAX SCREEN BY RX. MC PRN (11:00)
[2016-12-07] MEDS ORDERED: FLU VACC QS2017-18 (36MOS+)/PF 0.5 ML SYRINGE. VAX IM ONE (11:15)
[2016-12-07] MEDS ORDERED: PNEUMOC CONJ VACC 23-VALENT 0.5 ML VIAL. VAX IM ONE (11:15)
--- NOTE | 2016-12-07 12:16 | EKG ---
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
[2016-12-07 15:00] VITALS: BP 120/62
--- NOTE | 2016-12-07 15:10 | HP ---
ADMIT DATE: 12/07/2016 CHIEF COMPLAINT: Leg pain after a fall. HISTORY OF PRESENT ILLNESS: The patient is a pleasant, healthy middle-aged male who fell. He slipped on some grass, fell in a ditch. He complains of left leg pain that radiates from the left mid thigh all the way down to the calf. We are concerned he could have an occult fracture. We are going to admit the patient and get an MRI and consult Orthopedics. PAST MEDICAL HISTORY: Benign. ALLERGIES: None. FAMILY HISTORY: Diabetes. SOCIAL HISTORY: Does not drink, smoke or take drugs. MEDICATIONS: Reviewed. REVIEW OF SYSTEMS: GENERAL: No history of weight change, weakness or fevers. SKIN: No bruising, hair changes or rashes. EYES: No blurred, double or loss of vision. NOSE AND THROAT: No history of nosebleeds, hoarseness or sore throat. HEART: No history of palpitations, chest pain or shortness of breath on exertion. LUNGS: Denies cough, hemoptysis, wheezing or shortness of breath. GASTROINTESTINAL: Denies changes in appetite, nausea, vomiting, diarrhea or constipation. GENITOURINARY: No history of frequency, urgency, hesitancy or nocturia. NEUROLOGIC: Denies history of numbness, tingling, tremor or weakness. PSYCHIATRIC: No history of panic, anxiety or depression. ENDOCRINE: No history of heat or cold intolerance, polyuria or polydipsia. EXTREMITIES: He complains of left leg pain. PHYSICAL EXAMINATION: VITAL SIGNS: Temperature afebrile, pulse 92, respirations 18, blood pressure 162/70. GENERAL: He is alert, cooperative. HEART: Normal S1, S2. LUNGS: Clear. ABDOMEN: Soft. EXTREMITIES: Left leg is painful to touch. ENDOCRINE: No thyromegaly. LYMPHATICS: No cervical nodes. HEMATOPOIETIC: No bruising. ASSESSMENT AND PLAN: Left leg pain after a fall, rule out occult fracture. The patient is being admitted. We will consult Orthopedics, get an MRI of the left leg. Continue p.r.n. narcotics. PT, OT and home meds. PRASHANT KENNEDY DO DR: ABEL/kaleb JOB#: [id number] / [id number]
--- NOTE | 2016-12-07 18:43 | RAD ---
MRI of the left lower extremity without contrast HISTORY: Pain status post fall Multi sequential imaging of the distal left thigh was performed and multiple static images were obtained. There is a moderate joint effusion. There is normal marrow signal. The PCL appears normal. The ACL is not well seen. The collateral ligaments are not well seen however there is edema around the lateral collateral ligament. There is a benign enchondroma in the distal femur. IMPRESSION: 1. Torn ACL. 2. Moderate joint effusion. 3. No fracture. 4. Tear of the lateral collateral ligament. The medial collateral ligament is not well evaluated. Electronically signed by: Gilles Becerra III, MD (12/07/2016 6:40 PM) [facility]
[2016-12-07 19:55] VITALS: BP 112/68
[2016-12-07 23:17] VITALS: BP 114/67
[2016-12-08] MEDS: IV NORMAL SALINE 1000ML BAG 1,000 ML IV SCH (00:08)
[2016-12-08] MEDS: fentaNYL PF VIAL 100 MCG/2 ML VIAL IV PRN ×11 (00:09→23:42)
[2016-12-08 03:20] VITALS: BP 110/56
[2016-12-08 07:00] VITALS: BP 123/80
--- NOTE | 2016-12-08 09:12 | RAD ---
Skull 2 views. History: Shunt evaluation AP and lateral views were taken of the skull. Comparison is made with a study from October 08. There are 2 shunt tubes. 1 is an intraventricular tube from the frontal region on the right to the ventricles. The second tubing is along the mesh at the posterior fossa. The valve of the tube posteriorly is almost parallel to the catheter. The notch on the valve of the ventricular tube is not as well seen but appears just posterior to tube lateral which is similar to the old study. Tubes appear unchanged in position. Impression: 1. No obvious change compared to the prior study.
--- NOTE | 2016-12-08 09:39 | PDOC ---
PROGRESS NOTES Subjective Subjective Problems overnight: Injured left knee and twisting fashion has swelling and stability difficulty bearing weight severe pain Objective Vital Signs Vital Signs Date Time Temp Pulse Resp B/P (MAP) Pulse Ox O2 Delivery O2 Flow Rate FiO2 12/08/16 08:59 16 Room Air 12/08/16 07:00 97.4 79 123/80 (94) 98 97.4 12/07/16 23:40 2.0 Physical Exam Tender over medial collateral ligament lax ACL on testing Labs Laboratory Tests Test 12/07/16 09:30 12/07/16 10:35 Sodium Level 142 mmol/L (136-145) Potassium Level 4.2 mmol/L (3.5-5.1) Chloride Level 104 mmol/L (98-107) Carbon Dioxide Level 32 mmol/L (21-32) Anion Gap 6 (6-14) Blood Urea Nitrogen 16 mg/dL (8-26) Creatinine 1.0 mg/dL (0.7-1.3) Estimated GFR (Cockcroft-Gault) 92.6 Glucose Level 97 mg/dL (70-99) Calcium Level 9.1 mg/dL (8.5-10.1) Troponin I Quantitative < 0.017 ng/mL (0.000-0.055) White Blood Count 8.1 x10^3/uL (4.0-11.0) Red Blood Count 4.88 x10^6/uL (4.30-5.70) Hemoglobin 14.5 g/dL (13.0-17.5) Hematocrit 43.0 % (39.0-53.0) Mean Corpuscular Volume 88 fL (79-100) Mean Corpuscular Hemoglobin 30 pg (25-35) Mean Corpuscular Hemoglobin Concent 34 g/dL (31-37) Red Cell Distribution Width 13.7 % (11.5-14.5) Platelet Count 229 x10^3/uL (140-400) Neutrophils (%) (Auto) 58 % (31-73) Lymphocytes (%) (Auto) 35 % (24-48) Monocytes (%) (Auto) 6 % (0-9) Eosinophils (%) (Auto) 1 % (0-3) Basophils (%) (Auto) 1 % (0-3) Neutrophils # (Auto) 4.7 x10^3uL (1.8-7.7) Lymphocytes # (Auto) 2.8 x10^3/uL (1.0-4.8) Monocytes # (Auto) 0.5 x10^3/uL (0.0-1.1) Eosinophils # (Auto) 0.0 x10^3/uL (0.0-0.7) Basophils # (Auto) 0.0 x10^3/uL (0.0-0.2) Laboratory Tests Test 12/07/16 10:35 White Blood Count 8.1 x10^3/uL (4.0-11.0) Red Blood Count 4.88 x10^6/uL (4.30-5.70) Hemoglobin 14.5 g/dL (13.0-17.5) Hematocrit 43.0 % (39.0-53.0) Mean Corpuscular Volume 88 fL (79-100) Mean Corpuscular Hemoglobin 30 pg (25-35) Mean Corpuscular Hemoglobin Concent 34 g/dL (31-37) Red Cell Distribution Width 13.7 % (11.5-14.5) Platelet Count 229 x10^3/uL (140-400) Neutrophils (%) (Auto) 58 % (31-73) Lymphocytes (%) (Auto) 35 % (24-48) Monocytes (%) (Auto) 6 % (0-9) Eosinophils (%) (Auto) 1 % (0-3) Basophils (%) (Auto) 1 % (0-3) Neutrophils # (Auto) 4.7 x10^3uL (1.8-7.7) Lymphocytes # (Auto) 2.8 x10^3/uL (1.0-4.8) Monocytes # (Auto) 0.5 x10^3/uL (0.0-1.1) Eosinophils # (Auto) 0.0 x10^3/uL (0.0-0.7) Basophils # (Auto) 0.0 x10^3/uL (0.0-0.2) Imaging MRI shows ACL tear and MCL sprain Assessment Assessment POD# [], S/P [] Problems: Plan Plan of Care Consult [facility] for anterior cruciate ligament functional brace Discussed treatment options with him including nonoperative treatment with bracing and potential surgery, he will talk to his family about treatment options. I told him this is not an urgent decision as it is usually done outpatient and after a time. To get his knee motion back following the injury. He can weight-bear as tolerated with crutch or walker support for stability and eventually use of the brace when fit up by [facility] orthopedics JENAE DE SOUZA MD Dec 08, 2016 09:39
[2016-12-08 11:00] VITALS: BP 127/65
[2016-12-08] MEDS: oxyCODONE/APAP 10/325 1 TAB TABLET PO PRN ×3 (12:01→22:25)
--- NOTE | 2016-12-08 12:18 | PDOC ---
PROGRESS NOTES Chief Complaint Chief Complaint LLE (knee) pain PMHx: -Brain tumor - Hydrocephalus -FOOD QUALITY TESTER shunt History of Present Illness History of Present Illness 21 y/o male presents with left knee pain after a fall. MRI showed ACL and LCL tear with a joint effusion. No acute fracture noted. Pt seen by orthopedics ( Dr. Alcantara) who would like the patient to be fit by [facility] orthopedics for a knee brace and follow up as an outpatient for possible surgical intervention. Patient would like to discuss this with his family. Patient seen at bedside. He appears well and is in no acute distress. His LLE is elevated and he is icing the knee. He continues to report left knee pain which we will treat with Percocet. Fentanyl for breakthrough pain. No other complaints at this time. Vitals Vitals Vital Signs Date Time Temp Pulse Resp B/P (MAP) Pulse Ox O2 Delivery O2 Flow Rate FiO2 12/08/16 12:01 16 Room Air 12/08/16 07:00 97.4 79 123/80 (94) 98 97.4 12/07/16 23:40 2.0 Physical Exam General: Alert, Oriented X3, Cooperative Heart: Regular rate, Normal S1, Normal S2, No murmurs Lungs: Clear Abdomen: Normal bowel sounds, Soft, No tenderness Extremities: No clubbing, No cyanosis, Normal pulses, Other (Left knee edema/ effusion. TTP of the left knee joint. LLE elevated with pillow. Ice bag in place ) Skin: No rashes, No breakdown, No significant lesion Review of Systems Review of Systems General: + fatigue, no fevers or chills CV: no CP or palpitations Resp: No SOB, wheezing or pleuritic pain MSK: + Left knee pain and swelling Assessment and Plan Assessmemt and Plan Problems Medical Problems: (1) Avascular necrosis of bone Status: Acute (2) Leg pain Status: Acute Assessment: -Ligamentous tear of left knee -history of brain tumor with hydrocephalus- FOOD QUALITY TESTER shunt in place Plan: -Recheck labs -continue monitoring -continue pain management -Percocet 10 mg q4 prn pain -fentanyl for breakthrough pain -PT/OT -Await Orthopedic input and plan Problems: Comment Review of Relevant I have reviewed the following items tracey (where applicable) has been applied. Labs Laboratory Tests Test 12/07/16 09:30 12/07/16 10:35 Sodium Level 142 mmol/L (136-145) Potassium Level 4.2 mmol/L (3.5-5.1) Chloride Level 104 mmol/L (98-107) Carbon Dioxide Level 32 mmol/L (21-32) Anion Gap 6 (6-14) Blood Urea Nitrogen 16 mg/dL (8-26) Creatinine 1.0 mg/dL (0.7-1.3) Estimated GFR (Cockcroft-Gault) 92.6 Glucose Level 97 mg/dL (70-99) Calcium Level 9.1 mg/dL (8.5-10.1) Troponin I Quantitative < 0.017 ng/mL (0.000-0.055) White Blood Count 8.1 x10^3/uL (4.0-11.0) Red Blood Count 4.88 x10^6/uL (4.30-5.70) Hemoglobin 14.5 g/dL (13.0-17.5) Hematocrit 43.0 % (39.0-53.0) Mean Corpuscular Volume 88 fL (79-100) Mean Corpuscular Hemoglobin 30 pg (25-35) Mean Corpuscular Hemoglobin Concent 34 g/dL (31-37) Red Cell Distribution Width 13.7 % (11.5-14.5) Platelet Count 229 x10^3/uL (140-400) Neutrophils (%) (Auto) 58 % (31-73) Lymphocytes (%) (Auto) 35 % (24-48) Monocytes (%) (Auto) 6 % (0-9) Eosinophils (%) (Auto) 1 % (0-3) Basophils (%) (Auto) 1 % (0-3) Neutrophils # (Auto) 4.7 x10^3uL (1.8-7.7) Lymphocytes # (Auto) 2.8 x10^3/uL (1.0-4.8) Monocytes # (Auto) 0.5 x10^3/uL (0.0-1.1) Eosinophils # (Auto) 0.0 x10^3/uL (0.0-0.7) Basophils # (Auto) 0.0 x10^3/uL (0.0-0.2) Medications Current Medications Hydromorphone HCl (Dilaudid) 0.5 mg 1X ONCE IM Last administered on 12/07/16 03:39; Start 12/07/16 at 03:30; Stop 12/07/16 at 03:31; Status DC Hydromorphone HCl (Dilaudid) 1 mg 1X ONCE IV Last administered on 12/07/16 06 :07; Start 12/07/16 at 06:00; Stop 12/07/16 at 06:01; Status DC Fentanyl Citrate (Fentanyl 2ml Vial) 75 mcg 1X ONCE IV Last administered on 07:54; Start 12/07/16 at 07:30; Stop 12/07/16 at 07:31; Status DC Ondansetron HCl (Zofran) 4 mg PRN Q8HRS PRN IV NAUSEA/VOMITING Last administered on 12/07/16 07:54; Start 12/07/16 at 07:30; Stop 12/08/16 at 07:29 ; Status DC Fentanyl Citrate (Fentanyl 2ml Vial) 50 mcg PRN Q1HR PRN IV PAIN Last administered on 12/07/16 15:08; Start 12/07/16 at 07:30; Stop 12/08/16 at 07:29 ; Status DC Sodium Chloride 1,000 ml @ 125 mls/hr Q8H IV Last administered on 12/08/16 00 :08; Start 12/07/16 at 07:30; Stop 12/08/16 at 07:29; Status DC Info (Do NOT chart on this placeholder) 1 each PRN 1X PRN MC SEE COMMENTS; Start 12/07/16 at 11:00; Status UNV Pneumococcal Polyvalent Vaccine (Do NOT chart on this placeholder) 1 each PRN 1X PRN MC SEE COMMENTS; Start 12/07/16 at 11:00; Status UNV Pneumococcal Polyvalent Vaccine (Pneumovax 23) 0.5 ml ONCE ONCE VAX IM ; Start 12/07/16 at 11:15; Stop 12/07/16 at 11:16; Status DC Influenza Virus Vaccine Quadrival (Fluarix Quad [id number] Syringe) 0.5 ml ONCE ONCE VAX IM ; Start 12/07/16 at 11:15; Stop 12/07/16 at 11:16; Status DC Fentanyl Citrate (Fentanyl 2ml Vial) 100 mcg PRN Q1HR PRN IV PAIN Last administered on 12/08/16 10:37; Start 12/07/16 at 16:30 Oxycodone/ Acetaminophen (Percocet 10/325) 1 tab PRN Q4HRS PRN PO PAIN Last administered on 12/08/16 12:01; Start 12/08/16 at 12:00 Active Scripts Active Reported Percocet 5-325 Mg Tablet (Oxycodone/Acetaminophen) 1 Each Tablet 1 Tab PO PRN Q4HRS PRN Vitals/I & O Vital Sign - Last 24 Hours 12/07/16 12/07/16 12/07/16 12/07/16 15:00 15:08 15:38 16:35 Temp 98.1 98.1 Pulse 60 Resp 18 16 16 16 B/P (MAP) 120/62 (81) Pulse Ox 100 O2 Delivery Room Air Room Air Nasal Cannula Nasal Cannula O2 Flow Rate 2.0 2.0 12/07/16 12/07/16 12/07/16 12/07/16 18:14 19:45 19:50 19:55 Temp 97.7 97.7 Pulse 75 Resp 16 20 18 B/P (MAP) 112/68 (83) Pulse Ox 100 93 O2 Delivery Room Air Nasal Cannula Room Air Room Air 12/07/16 12/07/16 12/07/16 12/08/16 23:06 23:17 23:40 00:09 Temp 98.3 98.3 Pulse 94 Resp 20 18 20 B/P (MAP) 114/67 (83) Pulse Ox 93 92 92 O2 Delivery Room Air Room Air Room Air O2 Flow Rate 2.0 2.0 12/08/16 12/08/16 12/08/16 12/08/16 01:32 03:20 04:36 05:54 Temp 98.2 98.2 Pulse 94 Resp 20 18 20 20 B/P (MAP) 110/56 (74) Pulse Ox 92 95 95 95 O2 Delivery Room Air Room Air Room Air Room Air 12/08/16 12/08/16 12/08/16 12/08/16 06:25 07:00 07:36 08:59 Temp 97.4 97.4 Pulse 79 Resp 20 16 16 B/P (MAP) 123/80 (94) Pulse Ox 95 98 O2 Delivery Room Air Room Air Room Air 1012/08/16 12/08/16 10:37 11:07 12:01 Resp 16 16 16 O2 Delivery Room Air Room Air Room Air PRASHANT KENNEDY III DO Dec 08, 2016 12:18
[2016-12-08] MEDS ORDERED: oxyCODONE/APAP 10/325 1 TAB TABLET PO PRN (12:30)
[2016-12-08 15:00] VITALS: BP 123/70
[2016-12-08 19:00] VITALS: BP 126/74
[2016-12-08 23:00] VITALS: BP 121/63
[2016-12-09] MEDS: oxyCODONE/APAP 10/325 1 TAB TABLET PO PRN ×3 (02:52→16:38)
[2016-12-09] MEDS: fentaNYL PF VIAL 100 MCG/2 ML VIAL IV PRN ×3 (02:53→10:31)
[2016-12-09 03:00] VITALS: BP 119/69
[2016-12-09 04:37] LABS: BASO % 0 % (0-3); EOS % 2 % (0-3); HEMATOCRIT 42.3 % (39.0-53.0); HEMOGLOBIN 14.2 g/dL (13.0-17.5); LYMPH # 2.6 x10^3/uL (1.0-4.8); LYMPH % 40 % (24-48); MEAN CORPUSCULAR HEMOGLOBIN 30 pg (25-35); MEAN CORPUSCULAR HGB CONC 34 g/dL (31-37); MEAN CORPUSCULAR VOLUME 89 fL (79-100); MONO % 7 % (0-9); NEUT % 51 % (31-73); PLATELET COUNT 224 x10^3/uL (140-400); RED BLOOD COUNT 4.77 x10^6/uL (4.30-5.70); RED CELL DISTRIBUTION WIDTH 13.5 % (11.5-14.5); WHITE BLOOD COUNT 6.5 x10^3/uL (4.0-11.0)
[2016-12-09 04:47] LABS: CALCIUM 8.5 mg/dL (8.5-10.1); GFR 92.6; POTASSIUM 3.8 mmol/L (3.5-5.1)
[2016-12-09 07:00] VITALS: BP 129/76
[2016-12-09 11:00] VITALS: BP 118/70
[2016-12-09] MEDS ORDERED: hydrALAZINE 20 MG/ML VIAL. IVP PRN (11:15)
[2016-12-09] MEDS ORDERED: ONDANSETRON PF 4 MG/2 ML VIAL. IV PRN (11:15)
[2016-12-09] MEDS ORDERED: DOCUSATE SODIUM 100 MG CAPSULE. PO PRN (11:15)
[2016-12-09] MEDS ORDERED: ACETAMINOPHEN 325 MG TABLET. PO PRN (11:15)
[2016-12-09] MEDS ORDERED: traMADol 50 MG TABLET PO PRN (11:15)
[2016-12-09] MEDS ORDERED: fentaNYL PF VIAL 100 MCG/2 ML VIAL IV PRN (11:15)
[2016-12-09] MEDS: oxyCODONE ER 10 MG TAB.ER.12H PO SCH ×2 (13:05→20:16)
--- NOTE | 2016-12-09 14:38 | PDOC ---
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 MRI showed ACL and LCL tear with a joint effusion. No acute fracture noted. Pt seen by orthopedics ( Dr. Alcantara) who would like the patient to be fit by [facility] orthopedics for a knee brace and follow up as an outpatient for possible surgical intervention. Patient would like to discuss this with his family. Patient seen at bedside. He appears well and is in no acute distress. His LLE is elevated and he is icing the knee. He continues to report left knee pain which we will treat with Percocet. Fentanyl for breakthrough pain. No other complaints at this time. severe pain, requires lots of opoids q1h ROS: no fever, chills, sob or chest pain c/o left shoulder pain, post fall, able to move bl UE Vitals Vitals Vital Signs Date Time Temp Pulse Resp B/P (MAP) Pulse Ox O2 Delivery O2 Flow Rate FiO2 12/09/16 13:05 96 Room Air 12/09/16 11:00 98.6 74 18 118/70 (86) 98.6 Physical Exam General: Alert, Oriented X3, Cooperative Heart: Regular rate, Normal S1, Normal S2, No murmurs Lungs: Clear Abdomen: Normal bowel sounds, Soft, No tenderness Extremities: No clubbing, No cyanosis, Normal pulses, Other (Left knee edema/ effusion. TTP of the left knee joint. LLE elevated with pillow. Ice bag in place ) Skin: No rashes, No breakdown, No significant lesion Labs LABS Laboratory Tests Test 12/09/16 03:53 12/09/16 03:56 Sodium Level 141 mmol/L (136-145) Potassium Level 3.8 mmol/L (3.5-5.1) Chloride Level 105 mmol/L (98-107) Carbon Dioxide Level 31 mmol/L (21-32) Anion Gap 5 (6-14) Blood Urea Nitrogen 13 mg/dL (8-26) Creatinine 1.0 mg/dL (0.7-1.3) Estimated GFR (Cockcroft-Gault) 92.6 Glucose Level 97 mg/dL (70-99) Calcium Level 8.5 mg/dL (8.5-10.1) White Blood Count 6.5 x10^3/uL (4.0-11.0) Red Blood Count 4.77 x10^6/uL (4.30-5.70) Hemoglobin 14.2 g/dL (13.0-17.5) Hematocrit 42.3 % (39.0-53.0) Mean Corpuscular Volume 89 fL (79-100) Mean Corpuscular Hemoglobin 30 pg (25-35) Mean Corpuscular Hemoglobin Concent 34 g/dL (31-37) Red Cell Distribution Width 13.5 % (11.5-14.5) Platelet Count 224 x10^3/uL (140-400) Neutrophils (%) (Auto) 51 % (31-73) Lymphocytes (%) (Auto) 40 % (24-48) Monocytes (%) (Auto) 7 % (0-9) Eosinophils (%) (Auto) 2 % (0-3) Basophils (%) (Auto) 0 % (0-3) Neutrophils # (Auto) 3.3 x10^3uL (1.8-7.7) Lymphocytes # (Auto) 2.6 x10^3/uL (1.0-4.8) Monocytes # (Auto) 0.5 x10^3/uL (0.0-1.1) Eosinophils # (Auto) 0.1 x10^3/uL (0.0-0.7) Basophils # (Auto) 0.0 x10^3/uL (0.0-0.2) Assessment and Plan Assessmemt and Plan Problems Medical Problems: (1) Avascular necrosis of bone Status: Acute (2) Leg pain Status: Acute Problems: Comment Review of Relevant I have reviewed the following items tracey (where applicable) has been applied. Labs Laboratory Tests Test 12/09/16 03:53 12/09/16 03:56 Sodium Level 141 mmol/L (136-145) Potassium Level 3.8 mmol/L (3.5-5.1) Chloride Level 105 mmol/L (98-107) Carbon Dioxide Level 31 mmol/L (21-32) Anion Gap 5 (6-14) Blood Urea Nitrogen 13 mg/dL (8-26) Creatinine 1.0 mg/dL (0.7-1.3) Estimated GFR (Cockcroft-Gault) 92.6 Glucose Level 97 mg/dL (70-99) Calcium Level 8.5 mg/dL (8.5-10.1) White Blood Count 6.5 x10^3/uL (4.0-11.0) Red Blood Count 4.77 x10^6/uL (4.30-5.70) Hemoglobin 14.2 g/dL (13.0-17.5) Hematocrit 42.3 % (39.0-53.0) Mean Corpuscular Volume 89 fL (79-100) Mean Corpuscular Hemoglobin 30 pg (25-35) Mean Corpuscular Hemoglobin Concent 34 g/dL (31-37) Red Cell Distribution Width 13.5 % (11.5-14.5) Platelet Count 224 x10^3/uL (140-400) Neutrophils (%) (Auto) 51 % (31-73) Lymphocytes (%) (Auto) 40 % (24-48) Monocytes (%) (Auto) 7 % (0-9) Eosinophils (%) (Auto) 2 % (0-3) Basophils (%) (Auto) 0 % (0-3) Neutrophils # (Auto) 3.3 x10^3uL (1.8-7.7) Lymphocytes # (Auto) 2.6 x10^3/uL (1.0-4.8) Monocytes # (Auto) 0.5 x10^3/uL (0.0-1.1) Eosinophils # (Auto) 0.1 x10^3/uL (0.0-0.7) Basophils # (Auto) 0.0 x10^3/uL (0.0-0.2) Laboratory Tests Test 12/09/16 03:53 12/09/16 03:56 Sodium Level 141 mmol/L (136-145) Potassium Level 3.8 mmol/L (3.5-5.1) Chloride Level 105 mmol/L (98-107) Carbon Dioxide Level 31 mmol/L (21-32) Anion Gap 5 (6-14) Blood Urea Nitrogen 13 mg/dL (8-26) Creatinine 1.0 mg/dL (0.7-1.3) Estimated GFR (Cockcroft-Gault) 92.6 Glucose Level 97 mg/dL (70-99) Calcium Level 8.5 mg/dL (8.5-10.1) White Blood Count 6.5 x10^3/uL (4.0-11.0) Red Blood Count 4.77 x10^6/uL (4.30-5.70) Hemoglobin 14.2 g/dL (13.0-17.5) Hematocrit 42.3 % (39.0-53.0) Mean Corpuscular Volume 89 fL (79-100) Mean Corpuscular Hemoglobin 30 pg (25-35) Mean Corpuscular Hemoglobin Concent 34 g/dL (31-37) Red Cell Distribution Width 13.5 % (11.5-14.5) Platelet Count 224 x10^3/uL (140-400) Neutrophils (%) (Auto) 51 % (31-73) Lymphocytes (%) (Auto) 40 % (24-48) Monocytes (%) (Auto) 7 % (0-9) Eosinophils (%) (Auto) 2 % (0-3) Basophils (%) (Auto) 0 % (0-3) Neutrophils # (Auto) 3.3 x10^3uL (1.8-7.7) Lymphocytes # (Auto) 2.6 x10^3/uL (1.0-4.8) Monocytes # (Auto) 0.5 x10^3/uL (0.0-1.1) Eosinophils # (Auto) 0.1 x10^3/uL (0.0-0.7) Basophils # (Auto) 0.0 x10^3/uL (0.0-0.2) Medications Current Medications Hydromorphone HCl (Dilaudid) 0.5 mg 1X ONCE IM Last administered on 12/07/16 03:39; Start 12/07/16 at 03:30; Stop 12/07/16 at 03:31; Status DC Hydromorphone HCl (Dilaudid) 1 mg 1X ONCE IV Last administered on 12/07/16 06 :07; Start 12/07/16 at 06:00; Stop 12/07/16 at 06:01; Status DC Fentanyl Citrate (Fentanyl 2ml Vial) 75 mcg 1X ONCE IV Last administered on 07:54; Start 12/07/16 at 07:30; Stop 12/07/16 at 07:31; Status DC Ondansetron HCl (Zofran) 4 mg PRN Q8HRS PRN IV NAUSEA/VOMITING Last administered on 12/07/16 07:54; Start 12/07/16 at 07:30; Stop 12/08/16 at 07:29 ; Status DC Fentanyl Citrate (Fentanyl 2ml Vial) 50 mcg PRN Q1HR PRN IV PAIN Last administered on 12/07/16 15:08; Start 12/07/16 at 07:30; Stop 12/08/16 at 07:29 ; Status DC Sodium Chloride 1,000 ml @ 125 mls/hr Q8H IV Last administered on 12/08/16 00 :08; Start 12/07/16 at 07:30; Stop 12/08/16 at 07:29; Status DC Info (Do NOT chart on this placeholder) 1 each PRN 1X PRN MC SEE COMMENTS; Start 12/07/16 at 11:00; Status UNV Pneumococcal Polyvalent Vaccine (Do NOT chart on this placeholder) 1 each PRN 1X PRN MC SEE COMMENTS; Start 12/07/16 at 11:00; Status UNV Pneumococcal Polyvalent Vaccine (Pneumovax 23) 0.5 ml ONCE ONCE VAX IM Last administered on 12/08/16 16:57; Start 12/07/16 at 11:15; Stop 12/07/16 at 11:16 ; Status DC Influenza Virus Vaccine Quadrival (Fluarix Quad [id number] Syringe) 0.5 ml ONCE ONCE VAX IM Last administered on 12/08/16 17:00; Start 12/07/16 at 11:15; Stop 12/07/16 at 11:16; Status DC Fentanyl Citrate (Fentanyl 2ml Vial) 100 mcg PRN Q1HR PRN IV PAIN Last administered on 12/09/16 10:31; Start 12/07/16 at 16:30; Stop 12/09/16 at 11:08 ; Status DC Oxycodone/ Acetaminophen (Percocet 10/325) 1 tab PRN Q4HRS PRN PO MODERATE TO SEVERE PAIN Last administered on 12/09/16 08:56; Start 12/08/16 at 12:00 Oxycodone/ Acetaminophen (Percocet 10/325) 1 tab PRN Q4HRS PRN PO Pain; Start 12/08/16 at 12:30; Stop 12/09/16 at 11:08; Status DC Fentanyl Citrate (Fentanyl 2ml Vial) 100 mcg PRN Q2HR PRN IV SEVERE PAIN; Start 12/09/16 at 11:15 Acetaminophen (Tylenol) 650 mg PRN Q6HRS PRN PO FEVER; Start 12/09/16 at 11:15 Ondansetron HCl (Zofran) 4 mg PRN Q6HRS PRN IV NAUSEA/VOMITING; Start 12/09/16 at 11:15 Morphine Sulfate 2 mg PRN Q2HR PRN IV MODERATE PAIN; Start 12/09/16 at 11:15 Tramadol HCl (Ultram) 50 mg PRN Q6HRS PRN PO MILD PAIN; Start 12/09/16 at 11:15 Hydralazine HCl (Apresoline) 10 mg PRN Q4HRS PRN IVP ELEVATED BP, SEE COMMENTS ; Start 12/09/16 at 11:15 Docusate Sodium (Colace) 100 mg PRN DAILY PRN PO CONSTIPATION; Start 12/09/16 at 11:15 Oxycodone HCl (OxyCONTIN) 20 mg Q12HR PO Last administered on 12/09/16 13:05; Start 12/09/16 at 11:30 Active Scripts Active Reported Percocet 5-325 Mg Tablet (Oxycodone/Acetaminophen) 1 Each Tablet 1 Tab PO PRN Q4HRS PRN Vitals/I & O Vital Sign - Last 24 Hours 12/08/16 12/08/16 12/08/16 12/08/16 15:00 16:53 19:00 20:10 Temp 97.9 97.9 97.9 97.9 Pulse 76 86 Resp 18 16 18 B/P (MAP) 123/70 (87) 126/74 (91) Pulse Ox 97 94 O2 Delivery Room Air Room Air Room Air Room Air 12/08/16 12/08/16 12/08/16 12/08/16 20:12 22:24 22:25 23:00 Temp 97.7 97.7 Pulse 85 Resp 20 20 20 18 B/P (MAP) 121/63 (82) Pulse Ox 97 97 97 92 O2 Delivery Room Air Room Air Room Air Room Air 12/08/16 12/09/16 12/09/16 12/09/16 23:42 02:52 02:53 03:00 Temp 97.7 97.7 Pulse 60 Resp 20 20 20 18 B/P (MAP) 119/69 (86) Pulse Ox 97 97 97 95 O2 Delivery Room Air Room Air Room Air Room Air 12/09/16 12/09/16 12/09/16 12/09/16 03:25 03:55 07:00 07:14 Temp 98.5 98.5 Pulse 76 Resp 20 20 18 20 B/P (MAP) 129/76 (93) Pulse Ox 97 97 94 97 O2 Delivery Room Air Room Air 12/09/16 12/09/16 12/09/16 12/09/16 07:45 08:56 10:31 10:37 Pulse Ox 97 O2 Delivery Room Air Room Air Room Air Room Air 12/09/16 12/09/16 12/09/16 10:38 11:00 13:05 Temp 98.6 98.6 Pulse 74 Resp 18 B/P (MAP) 118/70 (86) Pulse Ox 96 96 O2 Delivery Room Air Room Air Room Air KARUNA BLUONT MD Dec 09, 2016 14:38
[2016-12-09 15:00] VITALS: BP 117/61
[2016-12-09] MEDS: ENOXAPARIN 40 MG/0.4 ML SYRINGE. SQ SCH (16:38)
[2016-12-09] MEDS: MORPHINE SULFATE 2 MG/ML DISP.SYRIN. IV PRN ×3 (17:36→22:33)
[2016-12-09 19:58] VITALS: BP 117/68
[2016-12-09 23:28] VITALS: BP 137/72
[2016-12-10] MEDS: oxyCODONE/APAP 10/325 1 TAB TABLET PO PRN ×5 (00:06→21:47)
[2016-12-10] MEDS: MORPHINE SULFATE 2 MG/ML DISP.SYRIN. IV PRN ×4 (01:14→23:48)
[2016-12-10 03:34] VITALS: BP 127/68
[2016-12-10 07:15] VITALS: BP 125/69
--- NOTE | 2016-12-10 07:30 | RAD ---
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 No shoulder fracture or dislocation is identified. The periarticular soft tissues are unremarkable. IMPRESSION: No acute left shoulder abnormality is detected.
[2016-12-10 07:58] LABS: BASO % 0 % (0-3); EOS % 1 % (0-3); HEMATOCRIT 45.4 % (39.0-53.0); HEMOGLOBIN 15.6 g/dL (13.0-17.5); LYMPH # 2.5 x10^3/uL (1.0-4.8); LYMPH % 41 % (24-48); MEAN CORPUSCULAR HEMOGLOBIN 30 pg (25-35); MEAN CORPUSCULAR HGB CONC 34 g/dL (31-37); MEAN CORPUSCULAR VOLUME 87 fL (79-100); MONO % 7 % (0-9); NEUT % 51 % (31-73); PLATELET COUNT 240 x10^3/uL (140-400); RED BLOOD COUNT 5.21 x10^6/uL (4.30-5.70); RED CELL DISTRIBUTION WIDTH 13.3 % (11.5-14.5); WHITE BLOOD COUNT 6.2 x10^3/uL (4.0-11.0)
[2016-12-10 08:21] LABS: CALCIUM 9.1 mg/dL (8.5-10.1); CREATININE 0.9 mg/dL (0.7-1.3); GFR 104.6; POTASSIUM 3.8 mmol/L (3.5-5.1)
[2016-12-10] MEDS: oxyCODONE ER 10 MG TAB.ER.12H PO SCH ×2 (09:50→20:54)
[2016-12-10] MEDS ORDERED: LACTULOSE 20 GM/30 ML SOLUTION. PO PRN (10:15)
[2016-12-10] MEDS ORDERED: MAGNESIUM HYDROXIDE 2,400 MG/30 ML ORAL.SUSP. PO PRN (10:15)
[2016-12-10 11:16] VITALS: BP 135/86
--- NOTE | 2016-12-10 13:24 | PDOC ---
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 if no sx , plan to dc tmr History of Present Illness History of Present Illness 21 y/o male presents with left knee pain after a fall. MRI showed ACL and LCL tear with a joint effusion. No acute fracture noted. Pt seen by orthopedics ( Dr. Alcantara) who would like the patient to be fit by [facility] orthopedics for a knee brace and follow up as an outpatient for possible surgical intervention. Patient would like to discuss this with his family. Patient seen at bedside. He appears well and is in no acute distress. His LLE is elevated and he is icing the knee. He continues to report left knee pain which we will treat with Percocet. Fentanyl for breakthrough pain. No other complaints at this time. severe pain, requires lots of opoids ROS: no fever, chills, sob or chest pain c/o left shoulder pain, post fall, able to move bl UE Vitals Vitals Vital Signs Date Time Temp Pulse Resp B/P (MAP) Pulse Ox O2 Delivery O2 Flow Rate FiO2 12/10/16 11:16 84 135/86 (102) 96 Room Air 12/10/16 07:15 98.1 20 98.1 12/10/16 04:16 2.0 Physical Exam General: Alert, Oriented X3, Cooperative Heart: Regular rate, Normal S1, Normal S2, No murmurs Lungs: Clear Abdomen: Normal bowel sounds, Soft, No tenderness Extremities: No clubbing, No cyanosis, Normal pulses, Other (Left knee edema/ effusion. TTP of the left knee joint. LLE elevated with pillow. Ice bag in place ) Skin: No rashes, No breakdown, No significant lesion Labs LABS Laboratory Tests Test 12/10/16 06:40 12/10/16 06:50 White Blood Count 6.2 x10^3/uL (4.0-11.0) Red Blood Count 5.21 x10^6/uL (4.30-5.70) Hemoglobin 15.6 g/dL (13.0-17.5) Hematocrit 45.4 % (39.0-53.0) Mean Corpuscular Volume 87 fL (79-100) Mean Corpuscular Hemoglobin 30 pg (25-35) Mean Corpuscular Hemoglobin Concent 34 g/dL (31-37) Red Cell Distribution Width 13.3 % (11.5-14.5) Platelet Count 240 x10^3/uL (140-400) Neutrophils (%) (Auto) 51 % (31-73) Lymphocytes (%) (Auto) 41 % (24-48) Monocytes (%) (Auto) 7 % (0-9) Eosinophils (%) (Auto) 1 % (0-3) Basophils (%) (Auto) 0 % (0-3) Neutrophils # (Auto) 3.1 x10^3uL (1.8-7.7) Lymphocytes # (Auto) 2.5 x10^3/uL (1.0-4.8) Monocytes # (Auto) 0.4 x10^3/uL (0.0-1.1) Eosinophils # (Auto) 0.1 x10^3/uL (0.0-0.7) Basophils # (Auto) 0.0 x10^3/uL (0.0-0.2) Sodium Level 141 mmol/L (136-145) Potassium Level 3.8 mmol/L (3.5-5.1) Chloride Level 103 mmol/L (98-107) Carbon Dioxide Level 32 mmol/L (21-32) Anion Gap 6 (6-14) Blood Urea Nitrogen 10 mg/dL (8-26) Creatinine 0.9 mg/dL (0.7-1.3) Estimated GFR (Cockcroft-Gault) 104.6 Glucose Level 93 mg/dL (70-99) Calcium Level 9.1 mg/dL (8.5-10.1) Assessment and Plan Assessmemt and Plan Problems Medical Problems: (1) Avascular necrosis of bone Status: Acute (2) Leg pain Status: Acute Problems: Comment Review of Relevant I have reviewed the following items tracey (where applicable) has been applied. Labs Laboratory Tests Test 12/09/16 03:53 12/09/16 03:56 12/10/16 06:40 12/10/16 06:50 Sodium Level 141 mmol/L (136-145) 141 mmol/L (136-145) Potassium Level 3.8 mmol/L (3.5-5.1) 3.8 mmol/L (3.5-5.1) Chloride Level 105 mmol/L (98-107) 103 mmol/L (98-107) Carbon Dioxide Level 31 mmol/L (21-32) 32 mmol/L (21-32) Anion Gap 5 (6-14) 6 (6-14) Blood Urea Nitrogen 13 mg/dL (8-26) 10 mg/dL (8-26) Creatinine 1.0 mg/dL (0.7-1.3) 0.9 mg/dL (0.7-1.3) Estimated GFR (Cockcroft-Gault) 92.6 104.6 Glucose Level 97 mg/dL (70-99) 93 mg/dL (70-99) Calcium Level 8.5 mg/dL (8.5-10.1) 9.1 mg/dL (8.5-10.1) White Blood Count 6.5 x10^3/uL (4.0-11.0) 6.2 x10^3/uL (4.0-11.0) Red Blood Count 4.77 x10^6/uL (4.30-5.70) 5.21 x10^6/uL (4.30-5.70) Hemoglobin 14.2 g/dL (13.0-17.5) 15.6 g/dL (13.0-17.5) Hematocrit 42.3 % (39.0-53.0) 45.4 % (39.0-53.0) Mean Corpuscular Volume 89 fL (79-100) 87 fL (79-100) Mean Corpuscular Hemoglobin 30 pg (25-35) 30 pg (25-35) Mean Corpuscular Hemoglobin Concent 34 g/dL (31-37) 34 g/dL (31-37) Red Cell Distribution Width 13.5 % (11.5-14.5) 13.3 % (11.5-14.5) Platelet Count 224 x10^3/uL (140-400) 240 x10^3/uL (140-400) Neutrophils (%) (Auto) 51 % (31-73) 51 % (31-73) Lymphocytes (%) (Auto) 40 % (24-48) 41 % (24-48) Monocytes (%) (Auto) 7 % (0-9) 7 % (0-9) Eosinophils (%) (Auto) 2 % (0-3) 1 % (0-3) Basophils (%) (Auto) 0 % (0-3) 0 % (0-3) Neutrophils # (Auto) 3.3 x10^3uL (1.8-7.7) 3.1 x10^3uL (1.8-7.7) Lymphocytes # (Auto) 2.6 x10^3/uL (1.0-4.8) 2.5 x10^3/uL (1.0-4.8) Monocytes # (Auto) 0.5 x10^3/uL (0.0-1.1) 0.4 x10^3/uL (0.0-1.1) Eosinophils # (Auto) 0.1 x10^3/uL (0.0-0.7) 0.1 x10^3/uL (0.0-0.7) Basophils # (Auto) 0.0 x10^3/uL (0.0-0.2) 0.0 x10^3/uL (0.0-0.2) Laboratory Tests Test 12/10/16 06:40 12/10/16 06:50 White Blood Count 6.2 x10^3/uL (4.0-11.0) Red Blood Count 5.21 x10^6/uL (4.30-5.70) Hemoglobin 15.6 g/dL (13.0-17.5) Hematocrit 45.4 % (39.0-53.0) Mean Corpuscular Volume 87 fL (79-100) Mean Corpuscular Hemoglobin 30 pg (25-35) Mean Corpuscular Hemoglobin Concent 34 g/dL (31-37) Red Cell Distribution Width 13.3 % (11.5-14.5) Platelet Count 240 x10^3/uL (140-400) Neutrophils (%) (Auto) 51 % (31-73) Lymphocytes (%) (Auto) 41 % (24-48) Monocytes (%) (Auto) 7 % (0-9) Eosinophils (%) (Auto) 1 % (0-3) Basophils (%) (Auto) 0 % (0-3) Neutrophils # (Auto) 3.1 x10^3uL (1.8-7.7) Lymphocytes # (Auto) 2.5 x10^3/uL (1.0-4.8) Monocytes # (Auto) 0.4 x10^3/uL (0.0-1.1) Eosinophils # (Auto) 0.1 x10^3/uL (0.0-0.7) Basophils # (Auto) 0.0 x10^3/uL (0.0-0.2) Sodium Level 141 mmol/L (136-145) Potassium Level 3.8 mmol/L (3.5-5.1) Chloride Level 103 mmol/L (98-107) Carbon Dioxide Level 32 mmol/L (21-32) Anion Gap 6 (6-14) Blood Urea Nitrogen 10 mg/dL (8-26) Creatinine 0.9 mg/dL (0.7-1.3) Estimated GFR (Cockcroft-Gault) 104.6 Glucose Level 93 mg/dL (70-99) Calcium Level 9.1 mg/dL (8.5-10.1) Medications Current Medications Hydromorphone HCl (Dilaudid) 0.5 mg 1X ONCE IM Last administered on 12/07/16 03:39; Start 12/07/16 at 03:30; Stop 12/07/16 at 03:31; Status DC Hydromorphone HCl (Dilaudid) 1 mg 1X ONCE IV Last administered on 12/07/16 06 :07; Start 12/07/16 at 06:00; Stop 12/07/16 at 06:01; Status DC Fentanyl Citrate (Fentanyl 2ml Vial) 75 mcg 1X ONCE IV Last administered on 07:54; Start 12/07/16 at 07:30; Stop 12/07/16 at 07:31; Status DC Ondansetron HCl (Zofran) 4 mg PRN Q8HRS PRN IV NAUSEA/VOMITING Last administered on 12/07/16 07:54; Start 12/07/16 at 07:30; Stop 12/08/16 at 07:29 ; Status DC Fentanyl Citrate (Fentanyl 2ml Vial) 50 mcg PRN Q1HR PRN IV PAIN Last administered on 12/07/16 15:08; Start 12/07/16 at 07:30; Stop 12/08/16 at 07:29 ; Status DC Sodium Chloride 1,000 ml @ 125 mls/hr Q8H IV Last administered on 12/08/16 00 :08; Start 12/07/16 at 07:30; Stop 12/08/16 at 07:29; Status DC Info (Do NOT chart on this placeholder) 1 each PRN 1X PRN MC SEE COMMENTS; Start 12/07/16 at 11:00; Status UNV Pneumococcal Polyvalent Vaccine (Do NOT chart on this placeholder) 1 each PRN 1X PRN MC SEE COMMENTS; Start 12/07/16 at 11:00; Status UNV Pneumococcal Polyvalent Vaccine (Pneumovax 23) 0.5 ml ONCE ONCE VAX IM Last administered on 12/08/16 16:57; Start 12/07/16 at 11:15; Stop 12/07/16 at 11:16 ; Status DC Influenza Virus Vaccine Quadrival (Fluarix Quad 0665-2114 Syringe) 0.5 ml ONCE ONCE VAX IM Last administered on 12/08/16 17:00; Start 12/07/16 at 11:15; Stop 12/07/16 at 11:16; Status DC Fentanyl Citrate (Fentanyl 2ml Vial) 100 mcg PRN Q1HR PRN IV PAIN Last administered on 12/09/16 10:31; Start 12/07/16 at 16:30; Stop 12/09/16 at 11:08 ; Status DC Oxycodone/ Acetaminophen (Percocet 10/325) 1 tab PRN Q4HRS PRN PO MODERATE TO SEVERE PAIN Last administered on 12/10/16 04:16; Start 12/08/16 at 12:00 Oxycodone/ Acetaminophen (Percocet 10/325) 1 tab PRN Q4HRS PRN PO Pain; Start 12/08/16 at 12:30; Stop 12/09/16 at 11:08; Status DC Fentanyl Citrate (Fentanyl 2ml Vial) 100 mcg PRN Q2HR PRN IV SEVERE PAIN; Start 12/09/16 at 11:15 Acetaminophen (Tylenol) 650 mg PRN Q6HRS PRN PO FEVER; Start 12/09/16 at 11:15 Ondansetron HCl (Zofran) 4 mg PRN Q6HRS PRN IV NAUSEA/VOMITING; Start 12/09/16 at 11:15 Morphine Sulfate 2 mg PRN Q2HR PRN IV MODERATE PAIN Last administered on 09:51; Start 12/09/16 at 11:15 Tramadol HCl (Ultram) 50 mg PRN Q6HRS PRN PO MILD PAIN; Start 12/09/16 at 11:15 Hydralazine HCl (Apresoline) 10 mg PRN Q4HRS PRN IVP ELEVATED BP, SEE COMMENTS ; Start 12/09/16 at 11:15 Docusate Sodium (Colace) 100 mg PRN DAILY PRN PO CONSTIPATION; Start 12/09/16 at 11:15 Oxycodone HCl (OxyCONTIN) 20 mg Q12HR PO Last administered on 12/10/16 09:50; Start 12/09/16 at 11:30 Enoxaparin Sodium (Lovenox 40mg Syringe) 40 mg Q24H SQ Last administered on 16:38; Start 12/09/16 at 15:00 Senna/Docusate Sodium (Senna Plus) 1 tab BID PO ; Start 12/10/16 at 10:00 Docusate Sodium (Colace) 100 mg BID PO ; Start 12/10/16 at 10:00 Magnesium Hydroxide (Milk Of Magnesia) 2,400 mg PRN Q12HR PRN PO CONSTIPATION; Start 12/10/16 at 10:15 Lactulose 20 gm PRN Q12HR PRN PO CONSTIPATION; Start 12/10/16 at 10:15 Active Scripts Active Reported Percocet 5-325 Mg Tablet (Oxycodone/Acetaminophen) 1 Each Tablet 1 Tab PO PRN Q4HRS PRN Vitals/I & O Vital Sign - Last 24 Hours 12/09/16 12/09/16 12/09/16 12/09/16 15:00 16:38 17:36 18:19 Temp 98.5 98.5 Pulse 98 Resp 18 B/P (MAP) 117/61 (79) Pulse Ox 96 O2 Delivery Room Air Room Air Room Air O2 Flow Rate 2.0 12/09/16 12/09/16 12/09/16 12/09/16 19:58 20:00 20:16 20:16 Temp 98.2 98.2 Pulse 105 Resp 18 16 16 B/P (MAP) 117/68 (84) Pulse Ox 93 93 93 O2 Delivery Room Air Room Air Room Air Room Air O2 Flow Rate 2.0 12/09/16 12/09/16 12/09/16 12/10/16 20:46 22:33 23:28 00:06 Temp 98.9 98.9 Pulse 71 Resp 16 18 16 B/P (MAP) 137/72 (93) Pulse Ox 93 97 97 O2 Delivery Room Air Room Air Room Air O2 Flow Rate 2.0 2.0 12/10/16 12/10/16 12/10/16 12/10/16 00:16 01:14 01:44 03:34 Temp 98.9 98.9 Pulse 72 Resp 16 16 16 18 B/P (MAP) 127/68 (87) Pulse Ox 97 97 97 94 O2 Delivery Room Air Room Air Room Air Room Air 12/10/16 12/10/16 12/10/16 12/10/16 04:16 06:07 06:38 07:15 Temp 98.1 98.1 Pulse 88 Resp 16 16 16 20 B/P (MAP) 125/69 (87) Pulse Ox 94 94 94 95 O2 Delivery Room Air Room Air Room Air Room Air O2 Flow Rate 2.0 12/10/16 11:16 Pulse 84 B/P (MAP) 135/86 (102) Pulse Ox 96 O2 Delivery Room Air KARUNA BLOUNT MD Dec 10, 2016 13:24
[2016-12-10] MEDS: DOCUSATE SODIUM 100 MG CAPSULE. PO SCH ×2 (13:25→20:53)
[2016-12-10] MEDS: SENNOSIDES/DOCUSATE 8.6/50MG TABLET. PO SCH ×2 (13:25→20:53)
[2016-12-10 15:09] VITALS: BP 121/81
--- NOTE | 2016-12-10 15:17 | PDOC ---
PROGRESS NOTES Subjective Subjective Problems overnight: Patient reports being measured but not yet fit for his ACL brace. He has been ambulating in a limited fashion with physical therapy use of a walker and is going to be trialed on crutches. Right knee is branding machine tender swollen and he has many questions as far as the treatment we discussed on my consultation on Friday. Also has some soreness ankle hip and shoulder Objective Vital Signs Vital Signs Date Time Temp Pulse Resp B/P (MAP) Pulse Ox O2 Delivery O2 Flow Rate FiO2 12/10/16 13:26 96 Room Air 2.0 12/10/16 11:16 84 135/86 (102) 12/10/16 07:15 98.1 20 98.1 Physical Exam Examination the right knee reveals significant effusion soft endpoint to ACL examination on Isha and anterior drawer good patellofemoral tracking mild tenderness over the medial collateral ligament with no gross instability mild joint line tenderness negative Benito's. Normal examination of the contralateral knee and aside from some slight stiffness normal examination of bilateral hips and ankles with normal alignment stability. Full active range of motion of both shoulders elbows wrists Labs Laboratory Tests Test 12/09/16 03:53 12/09/16 03:56 12/10/16 06:40 12/10/16 06:50 Sodium Level 141 mmol/L (136-145) 141 mmol/L (136-145) Potassium Level 3.8 mmol/L (3.5-5.1) 3.8 mmol/L (3.5-5.1) Chloride Level 105 mmol/L (98-107) 103 mmol/L (98-107) Carbon Dioxide Level 31 mmol/L (21-32) 32 mmol/L (21-32) Anion Gap 5 (6-14) 6 (6-14) Blood Urea Nitrogen 13 mg/dL (8-26) 10 mg/dL (8-26) Creatinine 1.0 mg/dL (0.7-1.3) 0.9 mg/dL (0.7-1.3) Estimated GFR (Cockcroft-Gault) 92.6 104.6 Glucose Level 97 mg/dL (70-99) 93 mg/dL (70-99) Calcium Level 8.5 mg/dL (8.5-10.1) 9.1 mg/dL (8.5-10.1) White Blood Count 6.5 x10^3/uL (4.0-11.0) 6.2 x10^3/uL (4.0-11.0) Red Blood Count 4.77 x10^6/uL (4.30-5.70) 5.21 x10^6/uL (4.30-5.70) Hemoglobin 14.2 g/dL (13.0-17.5) 15.6 g/dL (13.0-17.5) Hematocrit 42.3 % (39.0-53.0) 45.4 % (39.0-53.0) Mean Corpuscular Volume 89 fL (79-100) 87 fL (79-100) Mean Corpuscular Hemoglobin 30 pg (25-35) 30 pg (25-35) Mean Corpuscular Hemoglobin Concent 34 g/dL (31-37) 34 g/dL (31-37) Red Cell Distribution Width 13.5 % (11.5-14.5) 13.3 % (11.5-14.5) Platelet Count 224 x10^3/uL (140-400) 240 x10^3/uL (140-400) Neutrophils (%) (Auto) 51 % (31-73) 51 % (31-73) Lymphocytes (%) (Auto) 40 % (24-48) 41 % (24-48) Monocytes (%) (Auto) 7 % (0-9) 7 % (0-9) Eosinophils (%) (Auto) 2 % (0-3) 1 % (0-3) Basophils (%) (Auto) 0 % (0-3) 0 % (0-3) Neutrophils # (Auto) 3.3 x10^3uL (1.8-7.7) 3.1 x10^3uL (1.8-7.7) Lymphocytes # (Auto) 2.6 x10^3/uL (1.0-4.8) 2.5 x10^3/uL (1.0-4.8) Monocytes # (Auto) 0.5 x10^3/uL (0.0-1.1) 0.4 x10^3/uL (0.0-1.1) Eosinophils # (Auto) 0.1 x10^3/uL (0.0-0.7) 0.1 x10^3/uL (0.0-0.7) Basophils # (Auto) 0.0 x10^3/uL (0.0-0.2) 0.0 x10^3/uL (0.0-0.2) Laboratory Tests Test 12/10/16 06:40 12/10/16 06:50 White Blood Count 6.2 x10^3/uL (4.0-11.0) Red Blood Count 5.21 x10^6/uL (4.30-5.70) Hemoglobin 15.6 g/dL (13.0-17.5) Hematocrit 45.4 % (39.0-53.0) Mean Corpuscular Volume 87 fL (79-100) Mean Corpuscular Hemoglobin 30 pg (25-35) Mean Corpuscular Hemoglobin Concent 34 g/dL (31-37) Red Cell Distribution Width 13.3 % (11.5-14.5) Platelet Count 240 x10^3/uL (140-400) Neutrophils (%) (Auto) 51 % (31-73) Lymphocytes (%) (Auto) 41 % (24-48) Monocytes (%) (Auto) 7 % (0-9) Eosinophils (%) (Auto) 1 % (0-3) Basophils (%) (Auto) 0 % (0-3) Neutrophils # (Auto) 3.1 x10^3uL (1.8-7.7) Lymphocytes # (Auto) 2.5 x10^3/uL (1.0-4.8) Monocytes # (Auto) 0.4 x10^3/uL (0.0-1.1) Eosinophils # (Auto) 0.1 x10^3/uL (0.0-0.7) Basophils # (Auto) 0.0 x10^3/uL (0.0-0.2) Sodium Level 141 mmol/L (136-145) Potassium Level 3.8 mmol/L (3.5-5.1) Chloride Level 103 mmol/L (98-107) Carbon Dioxide Level 32 mmol/L (21-32) Anion Gap 6 (6-14) Blood Urea Nitrogen 10 mg/dL (8-26) Creatinine 0.9 mg/dL (0.7-1.3) Estimated GFR (Cockcroft-Gault) 104.6 Glucose Level 93 mg/dL (70-99) Calcium Level 9.1 mg/dL (8.5-10.1) Imaging Previous MRI had revealed an ACL tear and MCL sprain Assessment Assessment ACL tear and MCL sprain right knee Problems: Plan Plan of Care I had an extensive discussion with him reviewing from our discussion on Friday the structure and function of the anterior cruciate ligament the significance of the tear the fact that it will not heal but the possibility exists of nonoperative treatment activity modification bracing to control his motion adequately. Even if we were going to proceed with any surgery I would recommend at least about a 3 week period of getting his swelling down motion back ambulate with his brace to see how he is doing. In fact I would encourage him to examine nonoperative treatment with the brace for probably a couple month. To get the leg stronger and see how respond nonoperatively with the brace. I went over with him that if the knee continues to shift swell and hurt with activity due to instability that this would likely result in premature degenerative changes in the knee perhaps [address] and typically would recommend if he continues to feel instability during his activities of daily living with the brace that we do consider surgical reconstruction and stabilization of the knee. This is not an immediate decision however and the only downside really due to waiting a few months would be the possibility of injuring meniscus or another injury due to the knee instability causing a fall etc. All his questions were answered at this time he is going to discuss these aspects further with his family From an orthopedic standpoint syntheses really fit with his brace and worked with an physical therapy. Go home and follow up with me on an as-needed basis but probably in about 3 weeks for recheck his progress JENAE DE SOUZA MD Dec 10, 2016 15:17
[2016-12-10] MEDS: ENOXAPARIN 40 MG/0.4 ML SYRINGE. SQ SCH (17:35)
[2016-12-10 19:15] VITALS: BP 107/66
[2016-12-10] MEDS ORDERED: diphenhydrAMINE HCL 25 MG CAPSULE PO PRN (21:15)
[2016-12-10 23:26] VITALS: BP 119/71
[2016-12-11 03:26] VITALS: BP 110/78
[2016-12-11] MEDS: oxyCODONE/APAP 10/325 1 TAB TABLET PO PRN ×2 (05:15→10:29)
[2016-12-11 06:12] LABS: BASO # 0.1 x10^3/uL (0.0-0.2); BASO % 1 % (0-3); EOS % 1 % (0-3); HEMATOCRIT 45.5 % (39.0-53.0); HEMOGLOBIN 15.5 g/dL (13.0-17.5); LYMPH # 2.6 x10^3/uL (1.0-4.8); LYMPH % 37 % (24-48); MEAN CORPUSCULAR HEMOGLOBIN 30 pg (25-35); MEAN CORPUSCULAR HGB CONC 34 g/dL (31-37); MEAN CORPUSCULAR VOLUME 88 fL (79-100); MONO % 6 % (0-9); NEUT % 54 % (31-73); PLATELET COUNT 191 x10^3/uL (140-400); RED BLOOD COUNT 5.16 x10^6/uL (4.30-5.70); RED CELL DISTRIBUTION WIDTH 13.9 % (11.5-14.5); WHITE BLOOD COUNT 6.8 x10^3/uL (4.0-11.0)
[2016-12-11 06:26] LABS: CALCIUM 9.4 mg/dL (8.5-10.1); CREATININE 1.1 mg/dL (0.7-1.3); POTASSIUM 4.9 mmol/L (3.5-5.1)
[2016-12-11 07:15] VITALS: BP 121/78
[2016-12-11] MEDS: DOCUSATE SODIUM 100 MG CAPSULE. PO SCH (08:01)
[2016-12-11] MEDS: SENNOSIDES/DOCUSATE 8.6/50MG TABLET. PO SCH (08:01)
[2016-12-11] MEDS: oxyCODONE ER 10 MG TAB.ER.12H PO SCH (08:02)
[2016-12-11 11:04] VITALS: BP 121/69
[2016-12-11] MEDS ORDERED: OXYC1TAB9 PO (11:11)
[2016-12-11] MEDS ORDERED: OXYC10TA45 PO (11:11)
[2016-12-11] MEDS ORDERED: DOCU-109 PO (11:11)
[2016-12-11] MEDS ORDERED: SENN-22 PO (11:11)
--- NOTE | 2016-12-11 14:05 | PDOC3 ---
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 Jean is a 21 old M, fell, was found ACL torn and LCL tear, with severe left knee pain, swelling, hard to move. ortho consulted, recommend brace for now. pt still feels lots of pain, stable to dc home with high dose opoids, oxycotin 20mg bid, oxycodone prn. and brace, stool softner. fu with ortho in 3 weeks.then decide if really need sx. dc time 35min General: Alert, Oriented X3, Cooperative Heart: Regular rate, Normal S1, Normal S2, No murmurs Lungs: Clear Abdomen: Normal bowel sounds, Soft, No tenderness Extremities: No clubbing, No cyanosis, Normal pulses, Other (Left knee edema/ effusion. TTP of the left knee joint. LLE elevated with pillow. Ice bag in place ) Skin: No rashes, No breakdown, No significant lesion Patient History: No pertinent family history G8 BROTHER 33 FATHER 32 MOTHER G8 SISTER Unknown Problems: Disposition home CONDITION AT DISCHARGE: Improved Diet regular Scheduled Docusate Sodium (Colace), 100 MG PO BID Oxycodone Hcl (Oxycontin), 20 MG PO Q12HR Sennosides/Docusate Sodium (Senna-Time S Tablet), 1 TAB PO BID Scheduled PRN Oxycodone Hcl/Acetaminophen (Oxycodone-Acetaminophen 10-325), 1 TAB PO PRN Q4HRS PRN for MODERATE TO SEVERE PAIN Oxycodone/Apap 5-325 (Percocet 5-325 Mg Tablet), 1 TAB PO PRN Q4HRS PRN for PAIN , (Reported) Follow Up dr. Banks in 3 weeks KARUNA BLOUNT MD Dec 11, 2016 14:05
[2016-12-11] MEDS: ENOXAPARIN 40 MG/0.4 ML SYRINGE. SQ SCH (14:25)
[2016-12-11 15:11] VITALS: BP 123/71
--- NOTE | 2016-12-12 15:41 | CONS ---
DATE OF CONSULTATION: 12/09/2016 Delayed entry of a consultation on the patient, which was 12/06/2016. This supplements the initial note from that time. REQUESTING PHYSICIAN: Dr. Abrams. REASON FOR CONSULTATION: Right leg pain. HISTORY OF PRESENT ILLNESS: The patient is a 21-year-old male who slipped on some wet grass, fell in a ditch and twisted his left leg. He was unable to bear weight, reported significant swelling after that time-frame and was admitted to the hospital for further evaluation. MRI has subsequently been obtained and he has been minimal weightbearing on the leg, ambulating with a walker at presently. PAST MEDICAL HISTORY: He is otherwise healthy. Really has no medical issues. PAST SURGICAL HISTORY: Negative. ALLERGIES: No known drug allergies. MEDICATIONS: Reviewed. FAMILY HISTORY: Diabetes. SOCIAL HISTORY: Denies smoking, alcohol or drug use. REVIEW OF SYSTEMS: Significant really only for the left leg pain, swelling and instability. He denies radiating pain in the extremities, focal weakness, numbness, tingling. No loss of consciousness with the fall. No visual changes. No upper extremity weakness, injury or other joint pain. PHYSICAL EXAMINATION: On examination of the left leg, he has significant knee effusion. He does have increased motion on anterior drawer with a soft endpoint, slight tenderness over the medial collateral ligament with no gross opening and no other associated ligamentous instability. Range of motion is limited, but he does have good patellofemoral tracking and stability. Normal examination of the contralateral knee with normal alignment, stability of bilateral hips and ankles and overall intact motor function, distal pulses, sensation, reflexes, skin in both upper extremities and both lower extremities throughout. MRI shows ACL tear, joint effusion and fluid around the lateral collateral ligament without complete tear. Clinically, I think an MCL sprain is present as well. IMPRESSION: Anterior cruciate ligament tear, medial and lateral collateral ligament strains without gross instability. TREATMENT PLAN: I had discussed at length with him the structure and function of the anterior cruciate ligament, the fact that the other strained ligaments are likely to heal okay on their own. I talked about general management of an anterior cruciate ligament injury that it could be potentially managed with activity modification, for example, typically an anterior cruciate ligament is not required for walking on a flat level surface; however, pivoting, twisting, uneven ground or other demands would make the knee move in undesirable ways that could give him instability, cause further injury and result in premature degenerative changes, if not accommodated for or corrected. Nonoperative management is possible with an ACL brace, which may control his stability adequately and I would initially recommend this to see if the brace works well and he can go on with some additional rehab and nonoperative management. It is certainly possible, however, that if the brace does not adequately control his stability of the knee or he is unable to tolerate the brace with his specific activities, that operative reconstruction of the anterior cruciate ligament or other required structures may be advisable. We talked through that process risks, benefits, postoperative course and the recovery process expected. All his questions were answered at this time. He indicated that he would like to talk to his parents and family about the treatment options and make a decision over the next day or two. I told him that it is really not that urgent at this time, that we can get him set up with a brace through [facility], get him mobilized through physical therapy and even if surgery is decided upon, I would recommend about a 2-1/2 to 3-week period of getting motion back in the leg, allowing some of the swelling to resolve to avoid postoperative stiffness. I would be more likely supportive however, of some initial nonoperative treatment for a longer period of time with the brace, perhaps a couple of months where he could potentially better assess how he is going to do in the long-term with nonoperative treatment and bracing and could make a more informed decision about the possibility of any surgical treatment. Again, all his questions were answered at this time. I will follow up in the next day or two after discussions with his family to address any additional questions or further clarify his treatment plan, which would occur following his discharge on an outpatient basis. JENAE DE SOUZA MD DR: HEIDY/kaleb JOB#: [id number] / [id number]
== END 2016-12-11 17:24 | disposition home or self-care (01) | DRG 563 ==
LOC: ER 02:13 → 4 NORTH 07:22 → OBSVTOIN 12-09 11:07
PROVIDERS: ADMIT Internal Medicine; ATTEND Internal Medicine
DX: S83.512A Sprain of anterior cruciate ligament of left knee, initial encounter (principal); G89.29 Other chronic pain; W01.0XXA Fall on same level from slipping, tripping and stumbling without subsequent striking against object, initial encounter; S83.412A Sprain of medial collateral ligament of left knee, initial encounter; S83.422A Sprain of lateral collateral ligament of left knee, initial encounter; R51 Headache; M25.462 Effusion, left knee; K59.00 Constipation, unspecified; Y93.01 Activity, walking, marching and hiking; Z86.011 Personal history of benign neoplasm of the brain; Z98.2 Presence of cerebrospinal fluid drainage device; Z83.3 Family history of diabetes mellitus; Y92.89 Other specified places as the place of occurrence of the external cause; Y99.8 Other external cause status
CPT/HCPCS: 36415; 70250; 70450; 72125; 72192; 73030; 73502; 73552; 73700; 73718; 80048; 84484; 85025; 90686; 90732; 93005; 96372; 96374; 96375; G0378; G0379; J1170; J1650; J2270; J2405; J3010; J7030; Q0163; 97116; 97530; 99285-25

== ENCOUNTER → 2017-04-07 | Outpatient (CLI) | payer SELFPAY ==
[2017-04-07] MEDS: GADOBUTROL 10 MMOL/10 ML VIAL IV ×2 (15:43→15:44)
== END | disposition home or self-care (01) ==
LOC: KCIC MRI 14:23
DX: Z46.82 Encounter for fitting and adjustment of non-vascular catheter (principal); R51 Headache; Z98.2 Presence of cerebrospinal fluid drainage device; Z98.890 Other specified postprocedural states; Z85.89 Personal history of malignant neoplasm of other organs and systems
CPT/HCPCS: 70250; 70553; A9585

== ENCOUNTER 2017-11-06 16:05 | Emergency (ER) | payer SELFPAY ==
[~2017-11-06] VITALS: Ht 180.3 cm; Wt 113.4 kg
[~2017-11-06 16:05] MED LIST changes: +OXYC-323 PO; +OXYC-411 PO; +OXYC10TA45 PO; +SENN-22 PO
--- NOTE | 2017-11-06 16:33 | EKG ---
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
--- NOTE | 2017-11-06 16:54 | RAD ---
EXAM: Head CT without contrast. HISTORY: Headache. Benign brain tumor resection. Ventricular shunt. TECHNIQUE: Computed tomographic images of the head were obtained without contrast. *One or more of the following individualized dose reduction techniques were utilized for this examination: 1. Automated exposure control. 2. Adjustment of the mA and/or kV according to patient size. 3. Use of iterative reconstruction technique. COMPARISON: MRI dated 04/07/[address] dated 12/07/2016. FINDINGS: There is a stable fluid collection within the left posterior fossa measuring 2.9 cm, with overlying suboccipital craniotomy changes. There is a calcification along the medial aspect of the fluid collection and surrounding hypodensity within the left cerebellum, also stable in appearance. There is a left frontal approach ventricular catheter terminating to the right of midline within a decompressed frontal horn of the right lateral ventricle. This is not appreciably changed compared to the prior CT. There is no midline shift. The saeed-white matter differentiation pattern is intact. There is stable suspected scarring along the right parietal and frontal scalp. No suspicious calvarial lesion is seen. The orbits are unremarkable. There is a tiny right maxillary sinus mucous retention cyst. The mastoid air cells are clear. IMPRESSION: 1. No acute intracranial finding. 2. Stable fluid collection within the left middle cranial fossa with overlying suboccipital craniotomy changes. This is due to a resection cavity or residual cystic lesion component. There is surrounding hypodensity within the left cerebellum which may be due to encephalomalacia. 3. Left frontal ventricular shunt terminating within the frontal horn of the right lateral ventricle. The shunt tip and ventricle size is unchanged compared to prior studies. Electronically signed by: Mary Galdamez MD (11/06/2017 4:50 PM) [place] [id number]
[2017-11-06] MEDS ORDERED: PROCHLORPERAZINE 10 MG/2 ML VIAL. IV ONE (17:00)
--- NOTE | 2017-11-06 17:00 | RAD ---
PORTABLE CHEST 1V dated 11/06/2017 4:45 PM. Comparison: None. Clinical Indication: CHEST PAIN. Findings: Single upright portable exam performed. Heart and mediastinal contours within normal limits. Lung volumes are low, limiting evaluation. No consolidation or pleural effusion. No pneumothorax. Impression: Limited exam. No apparent acute abnormality. Electronically signed by: Henrry Martinez MD (11/06/2017 4:57 PM) [id number]
[2017-11-06 17:23] LABS: BASO % 1 % (0-3); EOS % 1 % (0-3); HEMATOCRIT 44.2 % (39.0-53.0); HEMOGLOBIN 15.3 g/dL (13.0-17.5); LYMPH # 1.9 x10^3/uL (1.0-4.8); LYMPH % 27 % (24-48); MEAN CORPUSCULAR HEMOGLOBIN 30 pg (25-35); MEAN CORPUSCULAR HGB CONC 35 g/dL (31-37); MEAN CORPUSCULAR VOLUME 88 fL (79-100); MONO # 0.6 x10^3/uL (0.0-1.1); MONO % 9 % (0-9); NEUT # 4.5 x10^3uL (1.8-7.7); NEUT % 64 % (31-73); PLATELET COUNT 238 x10^3/uL (140-400); RED BLOOD COUNT 5.04 x10^6/uL (4.30-5.70); RED CELL DISTRIBUTION WIDTH 13.6 % (11.5-14.5); WHITE BLOOD COUNT 7.1 x10^3/uL (4.0-11.0)
[2017-11-06 17:35] LABS: PROTHROMBIN TIME PATIENT 13.7 SEC (11.7-14.0)
[2017-11-06 17:42] LABS: ALBUMIN 3.7 g/dL (3.4-5.0); GFR 91.8; POTASSIUM 3.7 mmol/L (3.5-5.1)
--- NOTE | 2017-11-06 17:52 | PHYS DOC ---
Past Medical History Past Medical History: Other Additional Past Medical Histor: BRAIN TUMOR,blind R eye,CHRONIC HEAD PAIN, Past Surgical History: Other Additional Past Surgical Histo: BRAIN TUMOR REMOVAL, PAINT MIXER MACHINE shunt placed,SPINAL FLUID REMOVED FROM HEAD Alcohol Use: None Drug Use: None Adult General Chief Complaint Chief Complaint: CHEST PAIN HPI HPI Patient is a 22 year old male is presenting with multiple complaints. His primary complaint is that of headache he says he has nearly daily headaches for the last 2 days it is much worse it is sharp it is associated with photophobia he has had some nausea he also feels central chest pain sharp worse with deep breathing and coughing. He also has a sore throat he feels warm at times a little no definite fever at home his abdomen sometimes feels some cramping intermittent abdominal pain as well. No new trauma. Review of Systems Review of Systems Constitutional: Denies fever or chills [] Eyes: Denies change in visual acuity, redness, or eye pain []other than the baseline eye problems neuro: Negative for focal weakness or sensory changes All other systems were reviewed and found to be within normal limits, except as documented in this note. Current Medications Current Medications Current Medications Medications (Trade) Dose Ordered Sig/Yvon Start Time Stop Time Status Last Admin Dose Admin Haloperidol Lactate (Haldol Inj) 2 mg 1X ONCE 11/06/17 18:00 11/06/17 18:01 DC 11/06/17 18:15 2 MG Ketorolac Tromethamine (Toradol 15mg Vial) 15 mg 1X ONCE 11/06/17 18:00 11/06/17 18:01 DC 11/06/17 18:15 15 MG Prochlorperazine Edisylate (Compazine) 10 mg 1X ONCE 11/06/17 17:00 11/06/17 17:01 DC 11/06/17 17:20 10 MG Allergies Allergies Allergies Coded Allergies Type Severity Reaction Last Updated Verified No Known Drug Allergies 01/09/16 No Physical Exam Physical Exam Constitutional: Well developed, well nourished, no acute distress, non-toxic appearance. [] HENT: Normocephalic, atraumatic, bilateral external ears normal, oropharynx moist, no oral exudates, nose normal. 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 Neck: Normal range of motion, no tenderness, supple, no stridor. [] Cardiovascular:Heart rate regular rhythm, no murmur [] Lungs & Thorax: Bilateral breath sounds clear to auscultation []there is reproducible chest wall tenderness to palpation. Abdomen: Bowel sounds normal, soft, no tenderness, no masses, no pulsatile masses. [] Skin: Warm, dry, no erythema, no rash. [] Back: No tenderness, no CVA tenderness. [] Extremities: No tenderness, no cyanosis, no clubbing, ROM intact, no edema. [] Neurologic: Alert and oriented X 3, normal motor function, normal sensory function, no focal deficits noted. []Cranial nerves intact except difficult assessment of the right eye neck is supple. Strength and sensation are intact throughout Psychologic: Affect normal, judgement normal, mood normal. [] Current Patient Data Vital Signs Vital Signs Date Time Temp Pulse Resp B/P (MAP) Pulse Ox O2 Delivery O2 Flow Rate FiO2 11/06/17 18:16 98 124/58 (80) 96 Room Air 11/06/17 16:09 98.2 20 98.2 Lab Values Laboratory Tests Test 11/06/17 17:10 11/06/17 18:00 White Blood Count 7.1 x10^3/uL (4.0-11.0) Red Blood Count 5.04 x10^6/uL (4.30-5.70) Hemoglobin 15.3 g/dL (13.0-17.5) Hematocrit 44.2 % (39.0-53.0) Mean Corpuscular Volume 88 fL (79-100) Mean Corpuscular Hemoglobin 30 pg (25-35) Mean Corpuscular Hemoglobin Concent 35 g/dL (31-37) Red Cell Distribution Width 13.6 % (11.5-14.5) Platelet Count 238 x10^3/uL (140-400) Neutrophils (%) (Auto) 64 % (31-73) Lymphocytes (%) (Auto) 27 % (24-48) Monocytes (%) (Auto) 9 % (0-9) Eosinophils (%) (Auto) 1 % (0-3) Basophils (%) (Auto) 1 % (0-3) Neutrophils # (Auto) 4.5 x10^3uL (1.8-7.7) Lymphocytes # (Auto) 1.9 x10^3/uL (1.0-4.8) Monocytes # (Auto) 0.6 x10^3/uL (0.0-1.1) Eosinophils # (Auto) 0.0 x10^3/uL (0.0-0.7) Basophils # (Auto) 0.0 x10^3/uL (0.0-0.2) Prothrombin Time 13.7 SEC (11.7-14.0) Prothrombin Time INR 1.1 (0.8-1.1) Sodium Level 137 mmol/L (136-145) Potassium Level 3.7 mmol/L (3.5-5.1) Chloride Level 104 mmol/L (98-107) Carbon Dioxide Level 29 mmol/L (21-32) Anion Gap 4 (6-14) L Blood Urea Nitrogen 13 mg/dL (8-26) Creatinine 1.0 mg/dL (0.7-1.3) Estimated GFR (Cockcroft-Gault) 91.8 BUN/Creatinine Ratio 13 (6-20) Glucose Level 111 mg/dL (70-99) H Calcium Level 9.4 mg/dL (8.5-10.1) Total Bilirubin 0.7 mg/dL (0.2-1.0) Aspartate Amino Transferase (AST) 48 U/L (15-37) H Alanine Aminotransferase (ALT) 137 U/L (16-63) H Alkaline Phosphatase 67 U/L (46-116) Troponin I Quantitative < 0.017 ng/mL (0.000-0.055) Total Protein 7.6 g/dL (6.4-8.2) Albumin 3.7 g/dL (3.4-5.0) Albumin/Globulin Ratio 0.9 (1.0-1.7) L Lipase 325 U/L (73-393) Urine Collection Type Unknown Urine Color Yellow Urine Clarity Clear Urine pH 7.0 Urine Specific [place] 1.020 Urine Protein Negative mg/dL (NEG-TRACE) Urine Glucose (UA) Negative mg/dL (NEG) Urine Ketones (Stick) Negative mg/dL (NEG) Urine Blood Negative (NEG) Urine Nitrite Negative (NEG) Urine Bilirubin Negative (NEG) Urine Urobilinogen Dipstick 1.0 mg/dL (0.2 mg/dL) Urine Leukocyte Esterase Negative (NEG) Urine RBC 0 /HPF (0-2) Urine WBC 0 /HPF (0-4) Urine Squamous Epithelial Cells Few /LPF Urine Amorphous Sediment Present /HPF Urine Bacteria 0 /HPF (0-FEW) Urine Mucus Slight /LPF Laboratory Tests 11/06/17 17:10 Laboratory Tests 11/06/17 17:10 EKG EKG [] Interpretation Time: Normal sinus rhythm rate of 86 no acute ischemic changes noted interpreted by me time of encounter Radiology/Procedures Radiology/Procedures [] Impressions: IMPRESSION: 1. No acute intracranial finding. 2. Stable fluid collection within the left middle cranial fossa with overlying suboccipital craniotomy changes. This is due to a resection cavity or residual cystic lesion component. There is surrounding hypodensity within the left cerebellum which may be due to encephalomalacia. 3. Left frontal ventricular shunt terminating within the frontal horn of the right lateral ventricle. The shunt tip and ventricle size is unchanged compared to prior studies. Electronically signed by: Mary Galdamez MD (11/06/2017 4:50 PM) [facility] Impression: Limited exam. No apparent acute abnormality. Electronically signed by: Henrry Martinez MD (11/06/2017 4:57 PM) [facility] DICTATED and SIGNED BY: HENRRY MARTINEZ MD DATE: 11/06/171655 Course & Med Decision Making Course & Med Decision Making Pertinent Labs and Imaging studies reviewed. 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 CT head was done rapidly in the emergency room and it was negative for any acute process no hydrocephalus. The shunt site is not tender there is no fever and do not think he has an infected shunt. He has presented with headaches in the past with no acute pathology identified. At this point time chest x-ray negative for pneumonia limited evaluation but I have low suspicion EKG looked fine troponin negative waiting on a urinalysis patient was given Compazine in the emergency room with minimal improvement so I added Toradol and Haldol and we will reassess the patient. \Waiting on a urinalysis , if this is negative it is pending. likely d/c home by oncoming provider. 6:40 PM: Patient care was assumed from Dr. Sandra at shift change. The patient' s condition remains stable. He appears nontoxic. His headache that he is having he states is similar to his prior headaches, which are chronic. He states that his neurosurgeon usually gives him hydrocodone for this. His neurosurgeon, Dr. Israel, is out of town for the weekend up, and. I'll give the patient limited quantity of hydrocodone at his request, until he is able to follow up with his neurosurgeon. Importance of close follow-up and return precautions were discussed in detail. The patient's test results of been reviewed. Dragon Disclaimer Dragon Disclaimer This electronic medical record was generated, in whole or in part, using a voice recognition dictation system. Departure Departure Impression: Primary Impression: Headache Additional Impression: Chest pain Disposition: HOME, SELF-CARE Condition: STABLE Referrals: RILEY MOLINA MD (PCP) STORM HUSSEIN MD Patient Instructions: General Headache Without Cause Scripts Hydrocodone Bit/Acetaminophen (HYDROCODONE-APAP 5-325 ) 1 Each Tablet 1 TAB PO PRN Q6HRS PRN for PAIN, #10 TAB 0 Refills Prov: CHANG KING MD 11/06/17 Problem Qualifiers ZHANG MAURO MD Nov 06, 2017 17:52 CHANG KING MD Nov 06, 2017 18:45
[2017-11-06 17:53] LABS: ALBUMIN/GLOBULIN RATIO 0.9 (1.0-1.7); CALCIUM 9.4 mg/dL (8.5-10.1); TOTAL BILIRUBIN 0.7 mg/dL (0.2-1.0); TOTAL PROTEIN 7.6 g/dL (6.4-8.2)
[2017-11-06] MEDS ORDERED: KETOROLAC 15 MG/ML VIAL. IV ONE (18:00)
[2017-11-06] MEDS ORDERED: HALOPERIDOL LACTATE 5 MG/ML VIAL. IM ONE (18:00)
[2017-11-06 18:16] VITALS: BP 124/58
[2017-11-06 18:22] LABS: BILIRUBIN,URINE NEGATIVE (NEG); CLARITY,URINE CLEAR; COLOR,URINE YELLOW; NITRITE,URINE NEGATIVE (NEG); PROTEIN,URINE NEGATIVE (NEG-TRACE)
[2017-11-06 18:28] LABS: AMORPHOUS SEDIMENT,UR PRESENT /HPF; BACTERIA,URINE 0 /HPF (0-FEW); RBC,URINE 0 /HPF (0-2); SQUAMOUS EPITHELIAL CELL,UR FEW /LPF; WBC,URINE 0 /HPF (0-4)
[2017-11-06] MEDS ORDERED: HYDR-2758 PO (18:44)
== END 2017-11-06 18:57 | disposition home or self-care (01) ==
LOC: ER 16:05
DX: R51 Headache (principal); R07.89 Other chest pain; R11.0 Nausea; J02.9 Acute pharyngitis, unspecified; H54.61 Unqualified visual loss, right eye, normal vision left eye
CPT/HCPCS: 36415; 70450; 71045; 80053; 81001; 83690; 84484; 85025; 85610; 93005; 96372; 96374; 96375; 99285; J0780; J1630; J1885

== ENCOUNTER 2017-11-06 22:27 | Emergency (ER) | payer SELFPAY ==
[~2017-11-06] VITALS: Ht 180.3 cm; Wt 113.4 kg
[2017-11-06 22:50] VITALS: BP 135/80
[2017-11-06] MEDS ORDERED: diphenhydrAMINE 50 MG/ML VIAL IM ONE (23:45)
[2017-11-07] MEDS ORDERED: BENZTROPINE MESYLATE 2 MG/2 ML VIAL. IM ONE
--- NOTE | 2017-11-07 00:54 | PHYS DOC ---
Past Medical History Past Medical History: Other Additional Past Medical Histor: BRAIN TUMOR,blind R eye,CHRONIC HEAD PAIN, Past Surgical History: Other Additional Past Surgical Histo: BRAIN TUMOR REMOVAL, BODY FORMER shunt placed,SPINAL FLUID REMOVED FROM HEAD Alcohol Use: None Drug Use: None Adult General Chief Complaint Chief Complaint: ALLERGIC REACTION HPI HPI Patient is a 22 year old male who presents with a dystonic reaction to Haldol that was given earlier in the shift. Patient was here earlier and was given Toradol, Haldol, Compazine. Patient states he went home and then began having uncontrolled mouth movements. Patient states that he has side of the mouth bilaterally pain, and has been cheek smacking. She denies any shortness of breath or chest pain. Patient denies any rash or hives. Patient denies any itching. Review of Systems Review of Systems Constitutional: Denies fever or chills [] Eyes: Denies change in visual acuity, redness, or eye pain [] HENT: Denies nasal congestion or sore throat [] Respiratory: Denies cough or shortness of breath [] Cardiovascular: No additional information not addressed in HPI [] GI: Denies abdominal pain, nausea, vomiting, bloody stools or diarrhea [] : Denies dysuria or hematuria [] Musculoskeletal: Denies back pain or joint pain [] Integument: Denies rash or skin lesions [] Neurologic: Dystonic mouth movements. Denies headache, focal weakness or sensory changes [] Endocrine: Denies polyuria or polydipsia [] All other systems were reviewed and found to be within normal limits, except as documented in this note. Current Medications Current Medications Current Medications Medications (Trade) Dose Ordered Sig/[facility] Start Time Stop Time Status Last Admin Dose Admin Benztropine Mesylate (Cogentin) 1 mg 1X ONCE 11/07/17 00:00 11/07/17 00:01 DC 11/06/17 23:56 1 MG Diphenhydramine HCl (Benadryl) 50 mg 1X ONCE 11/06/17 23:45 11/06/17 23:46 DC 11/06/17 23:56 50 MG Allergies Allergies Allergies Coded Allergies Type Severity Reaction Last Updated Verified No Known Drug Allergies 01/09/16 No Physical Exam Physical Exam Constitutional: Well developed, well nourished, no acute distress, non-toxic appearance. [] HENT: Normocephalic, atraumatic, bilateral external ears normal, oropharynx moist, no oral exudates, nose normal. [] Eyes: PERRLA, EOMI, conjunctiva normal, no discharge. [] Neck: Normal range of motion, no tenderness, supple, no stridor. [] Cardiovascular:Heart rate regular rhythm, no murmur [] Lungs & Thorax: Bilateral breath sounds clear to auscultation [] Abdomen: Bowel sounds normal, soft, no tenderness, no masses, no pulsatile masses. [] Skin: Warm, dry, no erythema, no rash. [] Back: No tenderness, no CVA tenderness. [] Extremities: No tenderness, no cyanosis, no clubbing, ROM intact, no edema. [] Neurologic: Alert and oriented X 3, normal motor function, normal sensory function, no focal deficits noted. Dystonic mouth movements. Cheek smacking and uncontrollable tongue movements. [] Psychologic: Affect normal, judgement normal, mood normal. [] EKG EKG [] Radiology/Procedures Radiology/Procedures [] Course & Med Decision Making Course & Med Decision Making Upon examination patient speaks in full sentences and is in no respiratory distress. Patient's lungs are clear to auscultation. Patient does not have a rash or hives or itching. Patient is making uncontrolled movements with his mouth and stating that bilateral sides of his mouth or hurting. With mouth examination patient does not have hives or rash in his mouth. Patient does not have any swelling in the back of his throat or tongue swelling. Patient's lips are not swelling. Patient speaks in full sentences. Patient keeps sticking his fingers in his mouth and on his tongue. Patient and family are very anxious. I consulted pharmacy and they stated for me to give the patient Benadryl. Dr King examined patient and stated the better drug to give is the Cogentin. Patient is given 1mg Cogentin. Patient is alert and oriented. Patient states after the medication is given that he is feeling much better and the dystonic reaction symptoms have stopped. To be sent home. Patient can take Benadryl 25- 50 mg every 4-6 hours as needed. Follow-up with primary care if needed. [ER PHYSICIAN ATTENDING NOTE: I have personally seen and examined the patient, and agree with the history, physical exam, and plan, as documented by mid-level provider.] Dragon Disclaimer Dragon Disclaimer This electronic medical record was generated, in whole or in part, using a voice recognition dictation system. Departure Departure Impression: Primary Impression: Dystonic drug reaction Disposition: HOME, SELF-CARE Condition: STABLE Referrals: RILEY MOLINA MD (PCP) Patient Instructions: Dystonic Reaction Additional Instructions: Take Benadryl 25 mg to 50 mg every 4-6 hours if needed. Follow-up with her primary care if you need to. ADELIA TRIVEDI APRN Nov 07, 2017 00:54 CHANG KING MD Nov 07, 2017 06:36
== END 2017-11-07 01:37 | disposition home or self-care (01) ==
LOC: ER 22:27
DX: R25.8 Other abnormal involuntary movements (principal); T43.4X5A Adverse effect of butyrophenone and thiothixene neuroleptics, initial encounter; Y92.89 Other specified places as the place of occurrence of the external cause
CPT/HCPCS: 87070; 87880; 96372; 99284; J0515; J1200

== ENCOUNTER 2018-04-23 07:33 | Emergency (ER) | payer SELFPAY ==
[~2018-04-23] VITALS: Ht 185.4 cm; Wt 113.4 kg
[~2018-04-23 07:33] MED LIST changes: -HYDR-2758 PO; +HYDR-2761 PO; -OXYC-323 PO; -OXYC10TA45 PO; +OXYC10TA46 PO; +OXYC1TAB15 PO
--- NOTE | 2018-04-23 08:59 | PHYS DOC ---
Past Medical History Past Medical History: Other Additional Past Medical Histor: BRAIN TUMOR,blind R eye,CHRONIC HEAD PAIN, Past Surgical History: Other Additional Past Surgical Histo: BRAIN TUMOR REMOVAL, PNEUMATIC PRESS HAND shunt placed,SPINAL FLUID REMOVED FROM HEAD Alcohol Use: None Drug Use: None Adult General Chief Complaint Chief Complaint: DIZZY/LIGHT HEADED HPI HPI Patient is a 23 year old male who presents with throbbing bitemporal headache x3 days with associated nausea, vomiting, lightheadedness, and photosensitivity. Rates pain 9/10. Denies fever, chills, vision changes. Denies any recent illness or sick contacts. Review of Systems Review of Systems Constitutional: Denies fever or chills [] Eyes: Denies change in visual acuity, redness, or eye pain [] HENT: Endorses headache with light sensitivity, Denies nasal congestion, cough or sore throat [] Respiratory: Denies cough or shortness of breath [] Cardiovascular: No additional information not addressed in HPI [] GI: Denies abdominal pain, nausea, vomiting, bloody stools or diarrhea [] : Denies dysuria or hematuria [] Musculoskeletal: Denies back pain or joint pain [] Integument: Denies rash or skin lesions [] Neurologic: Denies headache, focal weakness or sensory changes [] Endocrine: Denies polyuria or polydipsia [] All other systems were reviewed and found to be within normal limits, except as documented in this note. Current Medications Current Medications Current Medications Medications (Trade) Dose Ordered Sig/[facility] Start Time Stop Time Status Last Admin Dose Admin Diphenhydramine HCl (Benadryl) 50 mg 1X ONCE 04/23/18 09:00 04/23/18 09:02 DC 04/23/18 09:14 50 MG Ketorolac Tromethamine (Toradol 15mg Vial) 15 mg 1X ONCE 04/23/18 09:00 04/23/18 09:02 DC 04/23/18 09:13 15 MG Prochlorperazine Edisylate (Compazine) 10 mg 1X ONCE 04/23/18 09:00 04/23/18 09:02 DC 04/23/18 09:13 10 MG Sodium Chloride 1,000 ml @ 1,000 mls/hr 1X ONCE 04/23/18 09:00 04/23/18 09:59 DC 04/23/18 09:14 1,000 MLS/HR Allergies Allergies Allergies Coded Allergies Type Severity Reaction Last Updated Verified No Known Drug Allergies 01/09/16 No Physical Exam Physical Exam Constitutional: Well developed, well nourished, mild acute distress, non-toxic appearance. [] HENT: Normocephalic, atraumatic, bilateral external ears normal, oropharynx moist, no oral exudates, nose normal. Bilateral tenderness on frontal and ethmoid sinus[] PNEUMATIC PRESS HAND SHUNT SITE NO ERYTHEMA NONTENDER. Eyes: LEFT EYE NORMAL RIGHT EYE REMOTE TRAUMA NOTED CLOUDY CORNEA Neck: Left-lateral palpable shunt on left lateral, Normal range of motion, no tenderness, supple, no stridor. [] Cardiovascular:Heart rate regular rhythm, no murmur [] Lungs & Thorax: Bilateral breath sounds clear to auscultation [] Abdomen: Bowel sounds normal, soft, no tenderness, no masses, no pulsatile masses. [] Skin: Warm, dry, no erythema, no rash. [] Back: No tenderness, no CVA tenderness. [] Extremities: No tenderness, no cyanosis, no clubbing, ROM intact, no edema. [] Neurologic: Alert and oriented X 3, normal motor function, normal sensory function, no focal deficits noted. [] ABNORMAL EYE ON THE RIGHT AT BASELINE OTHERWISE NO FOCAL FINDINGS. Psychologic: Affect normal, judgement normal, mood normal. [] Current Patient Data Vital Signs Vital Signs Date Time Temp Pulse Resp B/P (MAP) Pulse Ox O2 Delivery O2 Flow Rate FiO2 04/23/18 10:00 72 18 99 04/23/18 07:37 97.8 149/77 (101) Room Air 97.8 EKG EKG [] Radiology/Procedures Radiology/Procedures [] Impressions: IMPRESSION: 1. Stable fluid collection in the left posterior fossa similar to prior exam likely postsurgical with overlying suboccipital craniotomy changes. 2. Left frontal ventriculostomy shunt tubing identified terminating in the frontal horn of the right lateral ventricle. The right lateral ventricle is decompressed similar to prior exam. Electronically signed by: Jaron Samano MD (04/23/2018 10:03 AM) [facility] Course & Med Decision Making Course & Med Decision Making Pt is a 23 year old male with past medical history of s/p benign cerebellar tumor with PNEUMATIC PRESS HAND shunt who presents with symptoms of migraine headache x 3days. No focal neurological deficits. Afebrile with no point tenderness, edema or erythema over shunt origin. He presented with similar symptoms 10/[address]. Follows with Dr. Israel, Neurosurgery every 6 months. Pertinent Labs and Imaging studies reviewed. (See chart for details) Plan -IVF -Compazine -Benadryl -Head CT [] CT NEG 11 AM PT SYMPTOMS RESOLVED HE FEELS MUCH BETTER WANTS TO GO HOME. REASSURED NO SIGNS OF INFECTION CLINICALY. HAS HAD THIS COMPLAINT SEVERAL TIMES BEFORE. Dragon Disclaimer Dragon Disclaimer This electronic medical record was generated, in whole or in part, using a voice recognition dictation system. Departure Departure Impression: Primary Impression: Headache Disposition: HOME, SELF-CARE Condition: STABLE Referrals: RILEY MOLINA MD (PCP) ZHANG MAURO MD Apr 23, 2018 08:59
[2018-04-23] MEDS ORDERED: KETOROLAC 15 MG/ML VIAL. IV ONE (09:00)
[2018-04-23] MEDS ORDERED: diphenhydrAMINE 50 MG/ML VIAL IVP ONE (09:00)
[2018-04-23] MEDS ORDERED: IV NORMAL SALINE 1000ML BAG 1,000 ML IV ONE (09:00)
[2018-04-23] MEDS ORDERED: PROCHLORPERAZINE 10 MG/2 ML VIAL. IV ONE (09:00)
[2018-04-23 10:00] VITALS: BP 136/77
--- NOTE | 2018-04-23 10:06 | RAD ---
Examination: CT head without contrast HISTORY: History of headache, history of brain tumor removal, shunt COMPARISON: 11/06/2017 Exposure: One or more of the following individualized dose reduction techniques were utilized for this examination: 1. Automated exposure control 2. Adjustment of the mA and/or kV according to patient size 3. Use of iterative reconstruction technique TECHNIQUE: Axial CT images of the head without contrast. FINDINGS: Moderate-sized hypodensity identified in the left cerebellum stable fluid collection in the posterior fossa similar to prior exam. Calcification identified on the medial aspect of the fluid collection is similar to prior exam. Left suboccipital craniotomy changes again identified. Left frontal ventricular catheter identified terminating in the right lateral ventricle which is decompressed digit unchanged since prior exam. No evidence of midline shift. The saeed-white differentiation is maintained. The basal cisterns are uneffaced. The mastoid air cells are clear. Small mucous retention cysts or polyps identified in the bilateral maxillary sinuses. IMPRESSION: 1. Stable fluid collection in the left posterior fossa similar to prior exam likely postsurgical with overlying suboccipital craniotomy changes. 2. Left frontal ventriculostomy shunt tubing identified terminating in the frontal horn of the right lateral ventricle. The right lateral ventricle is decompressed similar to prior exam. Electronically signed by: Jaron Samano MD (04/23/2018 10:03 AM) [place] [id number]
== END 2018-04-23 10:54 | disposition home or self-care (01) ==
LOC: ER 07:33
DX: R51 Headache (principal); R11.2 Nausea with vomiting, unspecified; R42 Dizziness and giddiness; L56.8 Other specified acute skin changes due to ultraviolet radiation
CPT/HCPCS: 70450; 96361; 96374; 96375; 99284; J0780; J1200; J1885; J7030